=== PATIENT | female | born 1965 | race Caucasian/White ===

== ENCOUNTER 2021-04-01 14:59 | Inpatient (IN) | payer OTHER ==
[2021-04-01] MEDS ORDERED: Sodium Chloride 0.9% 1,000 ML IV ONE (15:29)
[2021-04-01] MEDS ORDERED: Sodium Chloride 0.9% 10 ML Syringe FLUSH PRN (15:29)
--- NOTE | 2021-04-01 15:38 | EDM.PDOC ---
ED HPI GENERAL MEDICAL PROBLEM - General Chief Complaint: Respiratory Problem Stated Complaint: LOW OXYGEN COVID + Time Seen by Provider: 04/01/21 15:18 Source of Information: Reports: Patient, RN Notes Reviewed History Limitations: Reports: No Limitations - History of Present Illness INITIAL COMMENTS - FREE TEXT/NARRATIVE: Patient is a 56-year-old female who presents to the ER for low oxygen levels while being Covid positive. Patient states she was tested on March 29, notes found to be Covid positive. She was placed on dexamethasone and sent home for outpatient management. She states that things have not been going very well not she feels pretty rotten today. She has a friend, who is an EMT and measured her oxygen levels at home and was found to be 85% on room air, so they sent her to the ER for evaluation. She is not had a fever, but has had chills, she is had a cough that is nonproductive, and shortness of breath, with really any movement. States she has not had much of an appetite, so she is not been eating or drinking much. Primary care provider is Adelaida Lind. Patient denies any underlying health issues other than the obesity. She did have an albuterol inha ler at home, and is trying to use this but states this was not helping either. - Related Data Allergies Allergy/AdvReac Type Severity Reaction Status Date / Time Opioids - Morphine Analogues Allergy Severe Chest Pain Verified 04/01/21 15:18 Home Meds: Home Meds Albuterol Sulfate [Albuterol Sulfate HFA] 1 puff IH Q6H PRN 04/01/21 [History] Benzonatate 200 mg PO TID PRN 04/01/21 [History] Ondansetron [Zofran ODT] 4 mg SL Q4H PRN 04/01/21 [History] dexAMETHasone [Dexamethasone] 6 mg PO DAILY 04/01/21 [History] Past Medical History - Infectious Disease History Infectious Disease History: Reports: Novel Coronavirus (03/29/21) - Past Surgical History GI Surgical History: Reports: Other (See Below) Other GI Surgeries/Procedures: stomach surgery Social & Family History - Tobacco Use Tobacco Use Status *Q: Never Tobacco User Second Hand Smoke Exposure: No - Caffeine Use Caffeine Use: Reports: None - Recreational Drug Use Recreational Drug Use: No ED ROS GENERAL - Review of Systems Review Of Systems: Comprehensive ROS is negative, except as noted in HPI. ED EXAM, GENERAL - Physical Exam Exam: See Below Exam Limited By: No Limitations General Appearance: Alert, WD/WN, No Apparent Distress Respiratory/Chest: No Respiratory Distress, Lungs Clear, Normal Breath Sounds, No Accessory Muscle Use, Chest Non-Tender Cardiovascular: Normal Peripheral Pulses, Regular Rate, Rhythm, No Edema Peripheral Pulses: 2+: Radial (L), Radial (R) GI/Abdominal: Normal Bowel Sounds, Soft, Non-Tender, No Distention, No Mass Extremities: Normal Inspection, Normal Capillary Refill Neurological: Alert, Oriented, Normal Cognition, No Motor/Sensory Deficits Psychiatric: Normal Affect, Normal Mood Skin Exam: Warm, Dry, Intact, Normal Color, No Rash #1 Interpretation EKG Date: 04/01/21 Time: 15:44 Rhythm: NSR Rate (Beats/Min): 76 [place]: LAD-Left [place] Deviation P-Wave: Present QRS: Normal ST-T: Normal QT: Normal Comparison: NA - No Prior EKG EKG Interpretation Comments: No obvious ischemia or acute ST changes noted, reviewed by myself and Dr. Blum. Course - Vital Signs Last Recorded V/S: Last Vital Signs Temp 99.4 F 04/01/21 15:13 Pulse 76 04/01/21 15:13 Resp 24 H 04/01/21 15:13 BP 134/60 04/01/21 15:13 Pulse Ox 85 L 04/01/21 15:26 - Orders/Labs/Meds Orders: Active Orders 24 hr Category Date Time Status Admission Status [Patient Status] [ADT] Routine ADT 04/01/21 17:13 Ordered EKG Documentation Completion [RC] STAT Care 04/01/21 15:28 Ordered Oxygen Therapy, ED [RC] ASDIRECTED Care 04/01/21 16:03 Ordered Peripheral IV Care [RC] . DIRECTED Care 04/01/21 15:29 Ordered Chest 1V Frontal [CR] Stat Exams 04/01/21 15:28 Ordered CULTURE BLOOD [BC] Stat Lab 04/01/21 15:28 Ordered CULTURE BLOOD [BC] Stat Lab 04/01/21 15:28 Ordered Sodium Chloride 0.9% [Normal Saline] 1,000 ml Med 04/01/21 15:29 Active IV ONETIME Sodium Chloride 0.9% [Saline Flush] Med 04/01/21 15:29 Active 10 ml FLUSH ASDIRECTED PRN Blood Culture x2 Reflex Set [OM.PC] Stat Oth 04/01/21 15:28 Ordered Peripheral IV Insertion Adult [OM.PC] Routine Ot 04/01/21 15:28 Ordered Medication Orders Sodium Chloride (Normal Saline) 1,000 mls @ 250 mls/hr IV ONETIME ONE Stop: 04/01/21 19:28 Last Admin: 04/01/21 16:07 Dose: 250 mls/hr Documented by: ALEJANDRA Sodium Chloride (Sodium Chloride 0.9% 10 Ml Syringe) 10 ml FLUSH ASDIRECTED PRN PRN Reason: Keep Vein Open Last Admin: 04/01/21 16:07 Dose: 10 ml Documented by: ALEJANDRA Labs: Laboratory Tests 04/01/21 04/01/21 04/01/21 Range/Units 15:28 16:04 16:04 WBC 8.53 (3.98-10.04) K/mm3 RBC 4.16 (3.98-5.22) M/mm3 Hgb 12.9 (11.2-15.7) gm/dl Hct 39.9 (34.1-44.9) % MCV 95.9 H (79.4-94.8) fl MCH 31.0 (25.6-32.2) pg MCHC 32.3 (32.2-35.5) g/dl RDW Std Deviation 45.1 (36.4-46.3) fL Plt Count 193 (182-369) K/mm3 MPV 10.9 (9.4-12.3) fl Neutrophils % (Manual) 76 H (40-60) % Band Neutrophils % 0 (0-10) % Lymphocytes % (Manual) 14 L (20-40) % Atypical Lymphs % 4 % Monocytes % (Manual) 4 (2-10) % Eosinophils % (Manual) 0 L (0.7-5.8) % Basophils % (Manual) 0 L (0.1-1.2) Myelocytes % 2 Platelet Estimate Adequate RBC Morph Comment Normal PT (9.7-12.0) SECONDS INR APTT (21.7-31.4) SECONDS D-Dimer, Quantitative (0.19-0.50) mg/L Puncture Site Lt radial ABG pH 7.49 H (7.35-7.45) ABG pCO2 39.4 (35.0-45.0) mmHg ABG pO2 51.0 L (80.0-100.0) mmHg ABG HCO3 29.5 H (22.0-26.0) meq/L ABG O2 Saturation 83.2 L (96.0-97.0) % ABG Base Excess 6.1 H (-2-2.0) Yao Test Positive O2 Delivery Device Room air Oxygen Flow Rate 0.0 FiO2 0.00 L (21.00-100.00) % Sodium (136-145) mEq/L Potassium (3.5-5.1) mEq/L Chloride (98-107) mEq/L Carbon Dioxide (21-32) mEq/L Anion Gap (5-15) BUN (7-18) mg/dL Creatinine (0.55-1.02) mg/dL Est Cr Clr Drug Dosing mL/min Estimated GFR (MDRD) (>60) mL/min BUN/Creatinine Ratio (14-18) Glucose (70-99) mg/dL Lactic Acid (0.4-2.0) mmol/L Calcium (8.5-10.1) mg/dL Magnesium (1.8-2.4) mg/dL Ferritin (8-252) ng/ml Total Bilirubin (0.2-1.0) mg/dL AST (15-37) U/L ALT (14-59) U/L Alkaline Phosphatase (46-116) U/L Lactate Dehydrogenase (81-234) U/L Troponin I (0.00-0.056) ng/mL C-Reactive Protein 4.6 H* (<1.0) mg/dL NT-Pro-B Natriuret Pep (0-125) pg/mL Total Protein (6.4-8.2) g/dl Albumin (3.4-5.0) g/dl Globulin gm/dL Albumin/Globulin Ratio (1-2) 04/01/21 04/01/21 04/01/21 Range/Units 16:04 16:04 16:04 WBC (3.98-10.04) K/mm3 RBC (3.98-5.22) M/mm3 Hgb (11.2-15.7) gm/dl Hct (34.1-44.9) % MCV (79.4-94.8) fl MCH (25.6-32.2) pg MCHC (32.2-35.5) g/dl RDW Std Deviation (36.4-46.3) fL Plt Count (182-369) K/mm3 MPV (9.4-12.3) fl Neutrophils % (Manual) (40-60) % Band Neutrophils % (0-10) % Lymphocytes % (Manual) (20-40) % Atypical Lymphs % % Monocytes % (Manual) (2-10) % Eosinophils % (Manual) (0.7-5.8) % Basophils % (Manual) (0.1-1.2) Myelocytes % Platelet Estimate RBC Morph Comment PT 10.5 (9.7-12.0) SECONDS INR 0.98 APTT 31.9 H (21.7-31.4) SECONDS D-Dimer, Quantitative 0.23 (0.19-0.50) mg/L Puncture Site ABG pH (7.35-7.45) ABG pCO2 (35.0-45.0) mmHg ABG pO2 (80.0-100.0) mmHg ABG HCO3 (22.0-26.0) meq/L ABG O2 Saturation (96.0-97.0) % ABG Base Excess (-2-2.0) Yao Test O2 Delivery Device Oxygen Flow Rate FiO2 (21.00-100.00) % Sodium 142 (136-145) mEq/L Potassium 3.3 L (3.5-5.1) mEq/L Chloride 102 (98-107) mEq/L Carbon Dioxide 30 (21-32) mEq/L Anion Gap 13.3 (5-15) BUN 15 (7-18) mg/dL Creatinine 1.0 (0.55-1.02) mg/dL Est Cr Clr Drug Dosing 51.34 mL/min Estimated GFR (MDRD) 57 (>60) mL/min BUN/Creatinine Ratio 15.0 (14-18) Glucose 155 H (70-99) mg/dL Lactic Acid (0.4-2.0) mmol/L Calcium 8.1 L (8.5-10.1) mg/dL Magnesium 2.2 (1.8-2.4) mg/dL Ferritin (8-252) ng/ml Total Bilirubin 0.8 (0.2-1.0) mg/dL AST 42 H (15-37) U/L ALT 70 H (14-59) U/L Alkaline Phosphatase 66 (46-116) U/L Lactate Dehydrogenase 258 H (81-234) U/L Troponin I 0.017 (0.00-0.056) ng/mL C-Reactive Protein (<1.0) mg/dL NT-Pro-B Natriuret Pep 756 H (0-125) pg/mL Total Protein 6.8 (6.4-8.2) g/dl Albumin 3.1 L (3.4-5.0) g/dl Globulin 3.7 gm/dL Albumin/Globulin Ratio 0.8 L (1-2) 04/01/21 04/01/21 Range/Units 16:04 16:04 WBC (3.98-10.04) K/mm3 RBC (3.98-5.22) M/mm3 Hgb (11.2-15.7) gm/dl Hct (34.1-44.9) % MCV (79.4-94.8) fl MCH (25.6-32.2) pg MCHC (32.2-35.5) g/dl RDW Std Deviation (36.4-46.3) fL Plt Count (182-369) K/mm3 MPV (9.4-12.3) fl Neutrophils % (Manual) (40-60) % Band Neutrophils % (0-10) % Lymphocytes % (Manual) (20-40) % Atypical Lymphs % % Monocytes % (Manual) (2-10) % Eosinophils % (Manual) (0.7-5.8) % Basophils % (Manual) (0.1-1.2) Myelocytes % Platelet Estimate RBC Morph Comment PT (9.7-12.0) SECONDS INR APTT (21.7-31.4) SECONDS D-Dimer, Quantitative (0.19-0.50) mg/L Puncture Site ABG pH (7.35-7.45) ABG pCO2 (35.0-45.0) mmHg ABG pO2 (80.0-100.0) mmHg ABG HCO3 (22.0-26.0) meq/L ABG O2 Saturation (96.0-97.0) % ABG Base Excess (-2-2.0) Yao Test O2 Delivery Device Oxygen Flow Rate FiO2 (21.00-100.00) % Sodium (136-145) mEq/L Potassium (3.5-5.1) mEq/L Chloride (98-107) mEq/L Carbon Dioxide (21-32) mEq/L Anion Gap (5-15) BUN (7-18) mg/dL Creatinine (0.55-1.02) mg/dL Est Cr Clr Drug Dosing mL/min Estimated GFR (MDRD) (>60) mL/min BUN/Creatinine Ratio (14-18) Glucose (70-99) mg/dL Lactic Acid 1.4 (0.4-2.0) mmol/L Calcium (8.5-10.1) mg/dL Magnesium (1.8-2.4) mg/dL Ferritin 408 H (8-252) ng/ml Total Bilirubin (0.2-1.0) mg/dL AST (15-37) U/L ALT (14-59) U/L Alkaline Phosphatase (46-116) U/L Lactate Dehydrogenase (81-234) U/L Troponin I (0.00-0.056) ng/mL C-Reactive Protein (<1.0) mg/dL NT-Pro-B Natriuret Pep (0-125) pg/mL Total Protein (6.4-8.2) g/dl Albumin (3.4-5.0) g/dl Globulin gm/dL Albumin/Globulin Ratio (1-2) Meds: Medications Generic Name Dose Route Start Last Admin Trade Name Freq PRN Reason Stop Dose Admin Sodium Chloride 1,000 mls @ 250 mls/hr 04/01/21 15:29 04/01/21 16:07 Normal Saline IV 04/01/21 19:28 250 mls/hr ONETIME ONE Administration Sodium Chloride 10 ml 04/01/21 15:29 04/01/21 16:07 Sodium Chloride 0.9% 10 Ml Syringe FLUSH 10 ml ASDIRECTED PRN Administration Keep Vein Open - Re-Assessments/Exams Free Text/Narrative Re-Assessment/Exam: 04/01/21 15:38 Patient presents to the ER for low oxygen levels and being Covid positive. Have ordered quite a few labs for evaluation, chest x-ray and EKG. Patient was found to be hypoxic at triage, 85% on room air we will get room air blood gases. Plan is to hopefully admit the patient for hospitalization. 04/01/21 17:29 Labs have started to result, CBC is unremarkable, D-dimer is within normal limits, patient blood gas demonstrated a PO2 of 51, with no CO2 retention. The patient has been started on 2 L via nasal cannula, and is in the low 90s for O2 sats, she will be hospitalized, I did call Dr. Perez and he did graciously accept the patient for admission. He request that only 500 mils of fluid be given to the patient, so I did tell nursing to stop her IV. Departure - Departure Time of Disposition: 17:30 Disposition: Admitted As Inpatient 65 Condition: Good Clinical Impression: Hypoxia, COVID-19 - Discharge Information *PRESCRIPTION DRUG MONITORING PROGRAM REVIEWED*: No *COPY OF PRESCRIPTION DRUG MONITORING REPORT IN PATIENT LAQUITA: No Referrals: Adelaida Lind [facility] MANAGER [Primary Care Provider] - Forms: ED Department Discharge Sepsis Event Note (ED) - Evaluation Sepsis Screening Result: No Definite Risk - Focused Exam Vital Signs: Vital Signs Temp Pulse Resp BP Pulse Ox Pulse Ox 04/01/21 15:26 85 L 04/01/21 15:13 99.4 F 76 24 H 134/60 85 L - My Orders Last 24 Hours: My Active Orders 04/01/21 15:28 EKG Documentation Completion [RC] STAT Chest 1V Frontal [CR] Stat CULTURE BLOOD [BC] Stat CULTURE BLOOD [BC] Stat Blood Culture x2 Reflex Set [OM.PC] Stat Peripheral IV Insertion Adult [OM.PC] Routine 04/01/21 15:29 Peripheral IV Care [RC] . DIRECTED Sodium Chloride 0.9% [Normal Saline] 1,000 ml IV ONETIME Sodium Chloride 0.9% [Saline Flush] 10 ml FLUSH ASDIRECTED PRN 04/01/21 16:03 Oxygen Therapy, ED [RC] ASDIRECTED 04/01/21 17:13 Admission Status [Patient Status] [ADT] Routine - Assessment/Plan Last 24 Hours: My Active Orders 04/01/21 15:28 EKG Documentation Completion [RC] STAT Chest 1V Frontal [CR] Stat CULTURE BLOOD [BC] Stat CULTURE BLOOD [BC] Stat Blood Culture x2 Reflex Set [OM.PC] Stat Peripheral IV Insertion Adult [OM.PC] Routine 04/01/21 15:29 Peripheral IV Care [RC] . DIRECTED Sodium Chloride 0.9% [Normal Saline] 1,000 ml IV ONETIME Sodium Chloride 0.9% [Saline Flush] 10 ml FLUSH ASDIRECTED PRN 04/01/21 16:03 Oxygen Therapy, ED [RC] ASDIRECTED 04/01/21 17:13 Admission Status [Patient Status] [ADT] Routine
[2021-04-01] MEDS ORDERED: Ondansetron 4 MG Tab.DIS PO PRN (17:36)
[2021-04-01] MEDS ORDERED: Acetaminophen 325 MG Tab PO PRN (17:36)
[2021-04-01] MEDS ORDERED: oxyCODONE 5 MG Tab PO PRN (17:36)
[2021-04-01] MEDS ORDERED: Benzonatate 100 MG Cap PO PRN (17:48)
[2021-04-01] MEDS ORDERED: guaiFENesin/Dextromethorphan 100-10 MG/5 ML Soln 5 ML Cup PO PRN (17:49)
--- NOTE | 2021-04-01 17:56 | PCM.HP.2 ---
H&P History of Present Illness - General Date of Service: 04/02/21 Admit Problem/Dx: Admission Diagnosis/Problem Admission Diagnosis/Problem Hypoxia - History of Present Illness Initial Comments - Free Text/Narative: Mrs. Funes is a 56-year-old female who presented to ER with complaints of dyspnea, hypoxemia and cough. She tested positive for COVID-19 on March 29 and was prescribed dexamethasone, albuterol and Tessalon Perles. She has been compliant with treatment however her symptoms have persisted. She now feels like she is getting worse. She checked her O2 sats at home and her reading was at 85% on room air. She then decided come to the ER for further evaluation. She denies any fever, chills or malaise. Her appetite has been less than her normal. - Related Data Allergies/Adverse Reactions: Allergies Allergy/AdvReac Type Severity Reaction Status Date / Time Opioids - Morphine Analogues Allergy Severe Chest Pain Verified 04/01/21 15:18 Home Medications: Home Meds Albuterol Sulfate [Albuterol Sulfate HFA] 1 puff IH Q6H PRN 04/01/21 [History] Benzonatate 200 mg PO TID PRN 04/01/21 [History] Ondansetron [Zofran ODT] 4 mg SL Q4H PRN 04/01/21 [History] dexAMETHasone [Dexamethasone] 6 mg PO DAILY 04/01/21 [History] Past Medical History Endocrine/Metabolic History: Reports: Obesity/BMI 30+ (MORBID OBESITY) - Infectious Disease History Infectious Disease History: Reports: Novel Coronavirus (03/29/21) - Past Surgical History GI Surgical History: Reports: Other (See Below) Other GI Surgeries/Procedures: stomach surgery Social & Family History - Tobacco Use Tobacco Use Status *Q: Never Tobacco User Second Hand Smoke Exposure: No - Caffeine Use Caffeine Use: Reports: None - Recreational Drug Use Recreational Drug Use: No H&P Review of Systems - Review of Systems: Review Of Systems: See Below Free Text/Narrative: Constitutional: As per HPI CVS: Patient has any chest pain, orthopnea or PND Lungs: As per HPI Abdomen: As per HPI Genitourinary: Denies any dysuria, frequency,urgency or hematuria Psych: Denies having any suicidal or homicidal ideations. Patient also denies any hallucinations Endocrine: Denies any heat or cold intolerance. Denies any recent weight changes. Exam - Exam Exam: See Below - Vital Signs Vital Signs: Last Vital Signs Temp 99.4 F 04/01/21 15:13 Pulse 76 04/01/21 15:13 Resp 24 H 04/01/21 15:13 BP 134/60 04/01/21 15:13 Pulse Ox 85 L 04/01/21 15:26 Weight: 285 lb - Exam Physical Exam Comments:: This is an obese middle-aged female. She is awake and alert. Able to speak in full sentences HEENT: Normocephalic atraumatic pupils equal round react to light and accommodation extraocular is intact CVS: S1 S2 appreciated. regular rate and rhythm. no murmurs rubs or gallops lungs: Greatly diminished bilaterally with some wheezes bilaterally Abdomen: Obese , soft nontender, bowel sounds present Extremities: No clubbing, cyanosis or edema peripheral pulses 2+ Neuro: no focal deficits. Gait is normal. Sensation is normal Psych: Mood and affect are stable - Patient Data Lab Results Last 24 hrs: Laboratory Results - last 24 hr 04/01/21 04/01/21 04/01/21 Range/Units 15:28 16:04 16:04 WBC 8.53 (3.98-10.04) K/mm3 RBC 4.16 (3.98-5.22) M/mm3 Hgb 12.9 (11.2-15.7) gm/dl Hct 39.9 (34.1-44.9) % MCV 95.9 H (79.4-94.8) fl MCH 31.0 (25.6-32.2) pg MCHC 32.3 (32.2-35.5) g/dl RDW Std Deviation 45.1 (36.4-46.3) fL Plt Count 193 (182-369) K/mm3 MPV 10.9 (9.4-12.3) fl Neutrophils % (Manual) 76 H (40-60) % Band Neutrophils % 0 (0-10) % Lymphocytes % (Manual) 14 L (20-40) % Atypical Lymphs % 4 % Monocytes % (Manual) 4 (2-10) % Eosinophils % (Manual) 0 L (0.7-5.8) % Basophils % (Manual) 0 L (0.1-1.2) Myelocytes % 2 Platelet Estimate Adequate RBC Morph Comment Normal PT (9.7-12.0) SECONDS INR APTT (21.7-31.4) SECONDS D-Dimer, Quantitative (0.19-0.50) mg/L Puncture Site Lt radial ABG pH 7.49 H (7.35-7.45) ABG pCO2 39.4 (35.0-45.0) mmHg ABG pO2 51.0 L (80.0-100.0) mmHg ABG HCO3 29.5 H (22.0-26.0) meq/L ABG O2 Saturation 83.2 L (96.0-97.0) % ABG Base Excess 6.1 H (-2-2.0) Yao Test Positive O2 Delivery Device Room air Oxygen Flow Rate 0.0 FiO2 0.00 L (21.00-100.00) % Sodium (136-145) mEq/L Potassium (3.5-5.1) mEq/L Chloride (98-107) mEq/L Carbon Dioxide (21-32) mEq/L Anion Gap (5-15) BUN (7-18) mg/dL Creatinine (0.55-1.02) mg/dL Est Cr Clr Drug Dosing mL/min Estimated GFR (MDRD) (>60) mL/min BUN/Creatinine Ratio (14-18) Glucose (70-99) mg/dL Lactic Acid (0.4-2.0) mmol/L Calcium (8.5-10.1) mg/dL Magnesium (1.8-2.4) mg/dL Ferritin (8-252) ng/ml Total Bilirubin (0.2-1.0) mg/dL AST (15-37) U/L ALT (14-59) U/L Alkaline Phosphatase (46-116) U/L Lactate Dehydrogenase (81-234) U/L Troponin I (0.00-0.056) ng/mL C-Reactive Protein 4.6 H* (<1.0) mg/dL NT-Pro-B Natriuret Pep (0-125) pg/mL Total Protein (6.4-8.2) g/dl Albumin (3.4-5.0) g/dl Globulin gm/dL Albumin/Globulin Ratio (1-2) 04/01/21 04/01/21 04/01/21 Range/Units 16:04 16:04 16:04 WBC (3.98-10.04) K/mm3 RBC (3.98-5.22) M/mm3 Hgb (11.2-15.7) gm/dl Hct (34.1-44.9) % MCV (79.4-94.8) fl MCH (25.6-32.2) pg MCHC (32.2-35.5) g/dl RDW Std Deviation (36.4-46.3) fL Plt Count (182-369) K/mm3 MPV (9.4-12.3) fl Neutrophils % (Manual) (40-60) % Band Neutrophils % (0-10) % Lymphocytes % (Manual) (20-40) % Atypical Lymphs % % Monocytes % (Manual) (2-10) % Eosinophils % (Manual) (0.7-5.8) % Basophils % (Manual) (0.1-1.2) Myelocytes % Platelet Estimate RBC Morph Comment PT 10.5 (9.7-12.0) SECONDS INR 0.98 APTT 31.9 H (21.7-31.4) SECONDS D-Dimer, Quantitative 0.23 (0.19-0.50) mg/L Puncture Site ABG pH (7.35-7.45) ABG pCO2 (35.0-45.0) mmHg ABG pO2 (80.0-100.0) mmHg ABG HCO3 (22.0-26.0) meq/L ABG O2 Saturation (96.0-97.0) % ABG Base Excess (-2-2.0) Yao Test O2 Delivery Device Oxygen Flow Rate FiO2 (21.00-100.00) % Sodium 142 (136-145) mEq/L Potassium 3.3 L (3.5-5.1) mEq/L Chloride 102 (98-107) mEq/L Carbon Dioxide 30 (21-32) mEq/L Anion Gap 13.3 (5-15) BUN 15 (7-18) mg/dL Creatinine 1.0 (0.55-1.02) mg/dL Est Cr Clr Drug Dosing 51.34 mL/min Estimated GFR (MDRD) 57 (>60) mL/min BUN/Creatinine Ratio 15.0 (14-18) Glucose 155 H (70-99) mg/dL Lactic Acid (0.4-2.0) mmol/L Calcium 8.1 L (8.5-10.1) mg/dL Magnesium 2.2 (1.8-2.4) mg/dL Ferritin (8-252) ng/ml Total Bilirubin 0.8 (0.2-1.0) mg/dL AST 42 H (15-37) U/L ALT 70 H (14-59) U/L Alkaline Phosphatase 66 (46-116) U/L Lactate Dehydrogenase 258 H (81-234) U/L Troponin I 0.017 (0.00-0.056) ng/mL C-Reactive Protein (<1.0) mg/dL NT-Pro-B Natriuret Pep 756 H (0-125) pg/mL Total Protein 6.8 (6.4-8.2) g/dl Albumin 3.1 L (3.4-5.0) g/dl Globulin 3.7 gm/dL Albumin/Globulin Ratio 0.8 L (1-2) 04/01/21 04/01/21 Range/Units 16:04 16:04 WBC (3.98-10.04) K/mm3 RBC (3.98-5.22) M/mm3 Hgb (11.2-15.7) gm/dl Hct (34.1-44.9) % MCV (79.4-94.8) fl MCH (25.6-32.2) pg MCHC (32.2-35.5) g/dl RDW Std Deviation (36.4-46.3) fL Plt Count (182-369) K/mm3 MPV (9.4-12.3) fl Neutrophils % (Manual) (40-60) % Band Neutrophils % (0-10) % Lymphocytes % (Manual) (20-40) % Atypical Lymphs % % Monocytes % (Manual) (2-10) % Eosinophils % (Manual) (0.7-5.8) % Basophils % (Manual) (0.1-1.2) Myelocytes % Platelet Estimate RBC Morph Comment PT (9.7-12.0) SECONDS INR APTT (21.7-31.4) SECONDS D-Dimer, Quantitative (0.19-0.50) mg/L Puncture Site ABG pH (7.35-7.45) ABG pCO2 (35.0-45.0) mmHg ABG pO2 (80.0-100.0) mmHg ABG HCO3 (22.0-26.0) meq/L ABG O2 Saturation (96.0-97.0) % ABG Base Excess (-2-2.0) Yao Test O2 Delivery Device Oxygen Flow Rate FiO2 (21.00-100.00) % Sodium (136-145) mEq/L Potassium (3.5-5.1) mEq/L Chloride (98-107) mEq/L Carbon Dioxide (21-32) mEq/L Anion Gap (5-15) BUN (7-18) mg/dL Creatinine (0.55-1.02) mg/dL Est Cr Clr Drug Dosing mL/min Estimated GFR (MDRD) (>60) mL/min BUN/Creatinine Ratio (14-18) Glucose (70-99) mg/dL Lactic Acid 1.4 (0.4-2.0) mmol/L Calcium (8.5-10.1) mg/dL Magnesium (1.8-2.4) mg/dL Ferritin 408 H (8-252) ng/ml Total Bilirubin (0.2-1.0) mg/dL AST (15-37) U/L ALT (14-59) U/L Alkaline Phosphatase (46-116) U/L Lactate Dehydrogenase (81-234) U/L Troponin I (0.00-0.056) ng/mL C-Reactive Protein (<1.0) mg/dL NT-Pro-B Natriuret Pep (0-125) pg/mL Total Protein (6.4-8.2) g/dl Albumin (3.4-5.0) g/dl Globulin gm/dL Albumin/Globulin Ratio (1-2) Result Diagrams: 04/02/21 05:06 04/02/21 05:06 Sepsis Event Note - Evaluation Sepsis Screening Result: No Definite Risk - Focused Exam Vital Signs: Vital Signs Temp Pulse Resp BP Pulse Ox Pulse Ox 04/01/21 15:26 85 L 04/01/21 15:13 99.4 F 76 24 H 134/60 85 L - Problem List (1) Acute respiratory failure due to COVID-19 SNOMED Code(s): 629827988 ICD Code: U07.1 - COVID-19; J96.00 - ACUTE RESPIRATORY FAILURE, UNSP W HYPOX IA OR HYPERCAPNIA Status: Acute Current Visit: Yes Problem Details: Admit pt to the medical floor. Oxygen supplementation Inhalors prn incentive spirometry Q hr while awake proning Q HD (2) COVID-19 SNOMED Code(s): 373113284 ICD Code: U07.1 - COVID-19 Status: Acute Current Visit: Yes Problem Details: Start pt on remdesivir x 5 days Zithromax and Rocephin continue Decadron for a total of 10 days anticoagulation with SQ lovenox. check a D dimer. (3) Hypoxia SNOMED Code(s): 704546317 ICD Code: R09.02 - HYPOXEMIA Status: Acute Current Visit: Yes (4) Morbid obesity due to excess calories SNOMED Code(s): 569373029 ICD Code: E66.01 - MORBID (SEVERE) OBESITY DUE TO EXCESS CALORIES Status: Acute Current Visit: Yes Problem Details: lifestyle modification counseling. (5) DVT prophylaxis SNOMED Code(s): 292059983, 638818487 ICD Code: Z29.9 - ENCOUNTER FOR PROPHYLACTIC MEASURES, UNSPECIFIED Status: Acute Current Visit: Yes (6) Full code status SNOMED Code(s): 658561830 ICD Code: Z78.9 - OTHER SPECIFIED HEALTH STATUS Status: Acute Current Visit: Yes (7) DVT prophylaxis SNOMED Code(s): 512128278, 670625717 ICD Code: Z29.9 - ENCOUNTER FOR PROPHYLACTIC MEASURES, UNSPECIFIED Status: Acute Current Visit: Yes Problem Details: lovenox SQ Problem List Initiated/Reviewed/Updated: Yes Orders Last 24hrs: Active Orders 24 hr Category Date Time Status Admission Status [Patient Status] [ADT] Routine ADT 04/01/21 17:13 Active Communication Order [RC] DAILY Care 04/01/21 17:50 Ordered EKG Documentation Completion [RC] STAT Care 04/01/21 15:28 Active Oxygen Therapy [RC] PRN Care 04/01/21 17:36 Ordered Peripheral IV Care [RC] . DIRECTED Care 04/01/21 15:29 Active RT Incentive Spirometry [RC] Q1HWA Care 04/01/21 17:48 Ordered VTE/DVT Education [RC] PER UNIT ROUTINE Care 04/01/21 17:36 Ordered Vital Signs [RC] Q4H Care 04/01/21 17:36 Ordered Regular Diet [DIET] Diet 04/01/21 Dinner Ordered Chest 1V Frontal [CR] Stat Exams 04/01/21 15:28 Taken BASIC METABOLIC PANEL,BMP [CHEM] AM Lab 04/02/21 05:11 Ordered CBC WITH AUTO DIFF [HEME] AM Lab 04/02/21 05:11 Ordered CULTURE BLOOD [BC] Stat Lab 04/01/21 16:04 Received CULTURE BLOOD [BC] Stat Lab 04/01/21 16:17 Received D Dimer [D-DIMER QUANTITATIVE] [COAG] Routine Lab 04/01/21 17:53 Ordered HEPATIC FUNCTION PANEL,HFP [CHEM] DAILY Lab 04/02/21 17:45 Ordered HEPATIC FUNCTION PANEL,HFP [CHEM] DAILY Lab 04/03/21 17:45 Ordered HEPATIC FUNCTION PANEL,[facility] [CHEM] DAILY Lab 04/04/21 17:45 Ordered HEPATIC FUNCTION PANEL,HFP [CHEM] DAILY Lab 04/05/21 17:45 Ordered HEPATIC FUNCTION PANEL,[facility] [CHEM] Stat Lab 04/01/21 17:42 Ordered Acetaminophen [TylenoL] Med 04/01/21 17:36 Ordered 650 mg PO Q4H PRN Azithromycin [Zithromax] Med 04/01/21 18:00 Ordered 500 mg PO DAILY Benzonatate [Tessalon Perles] Med 04/01/21 17:48 Ordered 100 mg PO TID PRN Dextromethorphan/guaiFENesin [Robitussin DM] Med 04/01/21 17:49 Ordered 5 ml PO Q4H PRN Enoxaparin [Lovenox] Med 04/01/21 18:00 Ordered 40 mg SUBCUT Q12H Ondansetron [Zofran ODT] Med 04/01/21 17:36 Ordered 4 mg PO Q4H PRN Remdesivir 100 mg Med 04/02/21 18:00 Ordered Sodium Chloride 0.9% [Normal Saline] 250 ml IV ONETIME Sodium Chloride 0.9% [Normal Saline] 1,000 ml Med 04/01/21 15:29 Active IV ONETIME Sodium Chloride 0.9% [Saline Flush] Med 04/01/21 15:29 Active 10 ml FLUSH ASDIRECTED PRN dexAMETHasone Med 04/01/21 17:45 Ordered 6 mg PO DAILY oxyCODONE Med 04/01/21 17:36 Ordered 5 mg PO Q4H PRN Blood Culture x2 Reflex Set [OM.PC] Stat Oth 04/01/21 15:28 Ordered Peripheral IV Insertion Adult [OM.PC] Routine Oth 04/01/21 15:28 Ordered Resuscitation Status Routine Resus Stat 04/01/21 17:36 Ordered Medication Orders Acetaminophen (Acetaminophen 325 Mg Tab) 650 mg PO Q4H PRN PRN Reason: Pain (Mild 1-3)/fever Sodium Chloride (Normal Saline) 1,000 mls @ 250 mls/hr IV ONETIME ONE Stop: 04/01/21 19:28 Last Admin: 04/01/21 16:07 Dose: 250 mls/hr Documented by: ALEJANDRA Ondansetron HCl (Ondansetron 4 Mg Tab.Dis) 4 mg PO Q4H PRN PRN Reason: nausea, able to take PO Oxycodone HCl (Oxycodone 5 Mg Tab) 5 mg PO Q4H PRN PRN Reason: Pain (moderate 4-6) Sodium Chloride (Sodium Chloride 0.9% 10 Ml Syringe) 10 ml FLUSH ASDIRECTED PRN PRN Reason: Keep Vein Open Last Admin: 04/01/21 16:07 Dose: 10 ml Documented by: ALEJANDRA
[2021-04-01] MEDS ORDERED: Azithromycin 250 MG Tab PO SCH (18:00)
[2021-04-01] MEDS ORDERED: Enoxaparin 40 MG/0.4 ML Syringe SUBCUT SCH (18:00)
[2021-04-01] MEDS: Dexamethasone 4 MG Tab PO SCH (19:04)
[2021-04-01] MEDS ORDERED: REMDESIVIR 200 MG in Sodium Chloride 0.9% 250 ML IV ONE (20:41)
[2021-04-01] MEDS: Albuterol 6.7 GM Inhaler INH PRN (21:21)
--- NOTE | 2021-04-02 06:38 | CR ---
Chest: Portable view of the chest was obtained. Comparison: No prior chest imaging is available. Heart size and mediastinum are within normal limits for portable technique. Mild increased density is noted along the periphery of both lungs compatible with mild Covid 19 pneumonia. Lungs otherwise are clear. Bony structures show nothing acute. Impression: 1. Findings are compatible with mild Covid 19 pneumonia. 2. Portable chest x-ray is otherwise unremarkable. Diagnostic code #3
[2021-04-02] MEDS: Dexamethasone 4 MG Tab PO SCH (08:44)
[2021-04-02] MEDS ORDERED: Enoxaparin 40 MG/0.4 ML Syringe SUBCUT SCH (09:00)
--- NOTE | 2021-04-02 11:46 | PCM.PN ---
- General Info Date of Service: 04/02/21 Subjective Update: Patient still has a cough but definitely feels a lot better than she did yesterday. She still requires use of oxygen to keep sats above 90%. - Patient Data Vitals - Most Recent: Last Vital Signs Temp 97.5 F 04/02/21 10:50 Pulse 60 04/02/21 10:50 Resp 20 04/02/21 10:50 BP 130/48 L 04/02/21 10:50 Pulse Ox 89 L 04/02/21 10:50 Weight - Most Recent: 292 lb 12.8 oz I&O - Last 24 Hours: Intake & Output 04/01/21 04/02/21 04/02/21 22:59 06:59 14:59 Intake Total 0 650 Output Total 850 Balance 0 -200 Lab Results Last 24 Hours: Laboratory Results - last 24 hr 04/01/21 04/01/21 04/01/21 Range/Units 15:28 16:04 16:04 WBC 8.53 (3.98-10.04) K/mm3 RBC 4.16 (3.98-5.22) M/mm3 Hgb 12.9 (11.2-15.7) gm/dl Hct 39.9 (34.1-44.9) % MCV 95.9 H (79.4-94.8) fl MCH 31.0 (25.6-32.2) pg MCHC 32.3 (32.2-35.5) g/dl RDW Std Deviation 45.1 (36.4-46.3) fL Plt Count 193 (182-369) K/mm3 MPV 10.9 (9.4-12.3) fl Neut % (Auto) (34.0-71.1) % Lymph % (Auto) (19.3-51.7) % Saunders % (Auto) (4.7-12.5) % Eos % (Auto) (0.7-5.8) Baso % (Auto) (0.1-1.2) % Neut # (Auto) (1.56-6.13) K/mm3 Lymph # (Auto) (1.18-3.74) K/mm3 Saunders # (Auto) (0.24-0.36) K/mm3 Eos # (Auto) (0.04-0.36) K/mm3 Baso # (Auto) (0.01-0.08) K/mm3 Neutrophils % (Manual) 76 H (40-60) % Band Neutrophils % 0 (0-10) % Lymphocytes % (Manual) 14 L (20-40) % Atypical Lymphs % 4 % Monocytes % (Manual) 4 (2-10) % Eosinophils % (Manual) 0 L (0.7-5.8) % Basophils % (Manual) 0 L (0.1-1.2) Myelocytes % 2 Manual Slide Review Platelet Estimate Adequate RBC Morph Comment Normal PT (9.7-12.0) SECONDS INR APTT (21.7-31.4) SECONDS D-Dimer, Quantitative (0.19-0.50) mg/L Puncture Site Lt radial ABG pH 7.49 H (7.35-7.45) ABG pCO2 39.4 (35.0-45.0) mmHg ABG pO2 51.0 L (80.0-100.0) mmHg ABG HCO3 29.5 H (22.0-26.0) meq/L ABG O2 Saturation 83.2 L (96.0-97.0) % ABG Base Excess 6.1 H (-2-2.0) Yao Test Positive O2 Delivery Device Room air Oxygen Flow Rate 0.0 FiO2 0.00 L (21.00-100.00) % Sodium (136-145) mEq/L Potassium (3.5-5.1) mEq/L Chloride (98-107) mEq/L Carbon Dioxide (21-32) mEq/L Anion Gap (5-15) BUN (7-18) mg/dL Creatinine (0.55-1.02) mg/dL Est Cr Clr Drug Dosing mL/min Estimated GFR (MDRD) (>60) mL/min BUN/Creatinine Ratio (14-18) Glucose (70-99) mg/dL Lactic Acid (0.4-2.0) mmol/L Calcium (8.5-10.1) mg/dL Magnesium (1.8-2.4) mg/dL Ferritin (8-252) ng/ml Total Bilirubin (0.2-1.0) mg/dL Direct Bilirubin (0.0-0.2) mg/dl Indirect Bilirubin AST (15-37) U/L ALT (14-59) U/L Alkaline Phosphatase (46-116) U/L Lactate Dehydrogenase (81-234) U/L Troponin I (0.00-0.056) ng/mL C-Reactive Protein 4.6 H* (<1.0) mg/dL NT-Pro-B Natriuret Pep (0-125) pg/mL Total Protein (6.4-8.2) g/dl Albumin (3.4-5.0) g/dl Globulin gm/dL Albumin/Globulin Ratio (1-2) 04/01/21 04/01/21 04/01/21 Range/Units 16:04 16:04 16:04 WBC (3.98-10.04) K/mm3 RBC (3.98-5.22) M/mm3 Hgb (11.2-15.7) gm/dl Hct (34.1-44.9) % MCV (79.4-94.8) fl MCH (25.6-32.2) pg MCHC (32.2-35.5) g/dl RDW Std Deviation (36.4-46.3) fL Plt Count (182-369) K/mm3 MPV (9.4-12.3) fl Neut % (Auto) (34.0-71.1) % Lymph % (Auto) (19.3-51.7) % Saunders % (Auto) (4.7-12.5) % Eos % (Auto) (0.7-5.8) Baso % (Auto) (0.1-1.2) % Neut # (Auto) (1.56-6.13) K/mm3 Lymph # (Auto) (1.18-3.74) K/mm3 Saunders # (Auto) (0.24-0.36) K/mm3 Eos # (Auto) (0.04-0.36) K/mm3 Baso # (Auto) (0.01-0.08) K/mm3 Neutrophils % (Manual) (40-60) % Band Neutrophils % (0-10) % Lymphocytes % (Manual) (20-40) % Atypical Lymphs % % Monocytes % (Manual) (2-10) % Eosinophils % (Manual) (0.7-5.8) % Basophils % (Manual) (0.1-1.2) Myelocytes % Manual Slide Review Platelet Estimate RBC Morph Comment PT 10.5 (9.7-12.0) SECONDS INR 0.98 APTT 31.9 H (21.7-31.4) SECONDS D-Dimer, Quantitative 0.23 (0.19-0.50) mg/L Puncture Site ABG pH (7.35-7.45) ABG pCO2 (35.0-45.0) mmHg ABG pO2 (80.0-100.0) mmHg ABG HCO3 (22.0-26.0) meq/L ABG O2 Saturation (96.0-97.0) % ABG Base Excess (-2-2.0) Yao Test O2 Delivery Device Oxygen Flow Rate FiO2 (21.00-100.00) % Sodium 142 (136-145) mEq/L Potassium 3.3 L (3.5-5.1) mEq/L Chloride 102 (98-107) mEq/L Carbon Dioxide 30 (21-32) mEq/L Anion Gap 13.3 (5-15) BUN 15 (7-18) mg/dL Creatinine 1.0 (0.55-1.02) mg/dL Est Cr Clr Drug Dosing 51.34 mL/min Estimated GFR (MDRD) 57 (>60) mL/min BUN/Creatinine Ratio 15.0 (14-18) Glucose 155 H (70-99) mg/dL Lactic Acid (0.4-2.0) mmol/L Calcium 8.1 L (8.5-10.1) mg/dL Magnesium 2.2 (1.8-2.4) mg/dL Ferritin (8-252) ng/ml Total Bilirubin 0.8 (0.2-1.0) mg/dL Direct Bilirubin (0.0-0.2) mg/dl Indirect Bilirubin AST 42 H (15-37) U/L ALT 70 H (14-59) U/L Alkaline Phosphatase 66 (46-116) U/L Lactate Dehydrogenase 258 H (81-234) U/L Troponin I 0.017 (0.00-0.056) ng/mL C-Reactive Protein (<1.0) mg/dL NT-Pro-B Natriuret Pep 756 H (0-125) pg/mL Total Protein 6.8 (6.4-8.2) g/dl Albumin 3.1 L (3.4-5.0) g/dl Globulin 3.7 gm/dL Albumin/Globulin Ratio 0.8 L (1-2) 04/01/21 04/01/21 04/01/21 Range/Units 16:04 16:04 18:20 WBC (3.98-10.04) K/mm3 RBC (3.98-5.22) M/mm3 Hgb (11.2-15.7) gm/dl Hct (34.1-44.9) % MCV (79.4-94.8) fl MCH (25.6-32.2) pg MCHC (32.2-35.5) g/dl RDW Std Deviation (36.4-46.3) fL Plt Count (182-369) K/mm3 MPV (9.4-12.3) fl Neut % (Auto) (34.0-71.1) % Lymph % (Auto) (19.3-51.7) % Saunders % (Auto) (4.7-12.5) % Eos % (Auto) (0.7-5.8) Baso % (Auto) (0.1-1.2) % Neut # (Auto) (1.56-6.13) K/mm3 Lymph # (Auto) (1.18-3.74) K/mm3 Saunders # (Auto) (0.24-0.36) K/mm3 Eos # (Auto) (0.04-0.36) K/mm3 Baso # (Auto) (0.01-0.08) K/mm3 Neutrophils % (Manual) (40-60) % Band Neutrophils % (0-10) % Lymphocytes % (Manual) (20-40) % Atypical Lymphs % % Monocytes % (Manual) (2-10) % Eosinophils % (Manual) (0.7-5.8) % Basophils % (Manual) (0.1-1.2) Myelocytes % Manual Slide Review Platelet Estimate RBC Morph Comment PT (9.7-12.0) SECONDS INR APTT (21.7-31.4) SECONDS D-Dimer, Quantitative (0.19-0.50) mg/L Puncture Site ABG pH (7.35-7.45) ABG pCO2 (35.0-45.0) mmHg ABG pO2 (80.0-100.0) mmHg ABG HCO3 (22.0-26.0) meq/L ABG O2 Saturation (96.0-97.0) % ABG Base Excess (-2-2.0) Yao Test O2 Delivery Device Oxygen Flow Rate FiO2 (21.00-100.00) % Sodium (136-145) mEq/L Potassium (3.5-5.1) mEq/L Chloride (98-107) mEq/L Carbon Dioxide (21-32) mEq/L Anion Gap (5-15) BUN (7-18) mg/dL Creatinine (0.55-1.02) mg/dL Est Cr Clr Drug Dosing mL/min Estimated GFR (MDRD) (>60) mL/min BUN/Creatinine Ratio (14-18) Glucose (70-99) mg/dL Lactic Acid 1.4 (0.4-2.0) mmol/L Calcium (8.5-10.1) mg/dL Magnesium (1.8-2.4) mg/dL Ferritin 408 H (8-252) ng/ml Total Bilirubin 0.8 (0.2-1.0) mg/dL Direct Bilirubin 0.30 H (0.0-0.2) mg/dl Indirect Bilirubin 0.50 AST 42 H (15-37) U/L ALT 69 H (14-59) U/L Alkaline Phosphatase 69 (46-116) U/L Lactate Dehydrogenase (81-234) U/L Troponin I (0.00-0.056) ng/mL C-Reactive Protein (<1.0) mg/dL NT-Pro-B Natriuret Pep (0-125) pg/mL Total Protein 6.7 (6.4-8.2) g/dl Albumin 3.0 L (3.4-5.0) g/dl Globulin 3.7 gm/dL Albumin/Globulin Ratio 0.8 L (1-2) 04/01/21 04/02/21 04/02/21 Range/Units 18:20 05:06 05:06 WBC 6.51 (3.98-10.04) K/mm3 RBC 4.03 (3.98-5.22) M/mm3 Hgb 12.5 (11.2-15.7) gm/dl Hct 38.3 (34.1-44.9) % MCV 95.0 H (79.4-94.8) fl MCH 31.0 (25.6-32.2) pg MCHC 32.6 (32.2-35.5) g/dl RDW Std Deviation 44.2 (36.4-46.3) fL Plt Count 171 L (182-369) K/mm3 MPV 10.4 (9.4-12.3) fl Neut % (Auto) 77.8 H (34.0-71.1) % Lymph % (Auto) 14.9 L (19.3-51.7) % Saunders % (Auto) 4.3 L (4.7-12.5) % Eos % (Auto) 2.8 (0.7-5.8) Baso % (Auto) 0.0 L (0.1-1.2) % Neut # (Auto) 5.07 (1.56-6.13) K/mm3 Lymph # (Auto) 0.97 L (1.18-3.74) K/mm3 Saunders # (Auto) 0.28 (0.24-0.36) K/mm3 Eos # (Auto) 0.18 (0.04-0.36) K/mm3 Baso # (Auto) 0.00 L (0.01-0.08) K/mm3 Neutrophils % (Manual) (40-60) % Band Neutrophils % (0-10) % Lymphocytes % (Manual) (20-40) % Atypical Lymphs % % Monocytes % (Manual) (2-10) % Eosinophils % (Manual) (0.7-5.8) % Basophils % (Manual) (0.1-1.2) Myelocytes % Manual Slide Review Abnormal smear Platelet Estimate RBC Morph Comment PT (9.7-12.0) SECONDS INR APTT (21.7-31.4) SECONDS D-Dimer, Quantitative 0.22 (0.19-0.50) mg/L Puncture Site ABG pH (7.35-7.45) ABG pCO2 (35.0-45.0) mmHg ABG pO2 (80.0-100.0) mmHg ABG HCO3 (22.0-26.0) meq/L ABG O2 Saturation (96.0-97.0) % ABG Base Excess (-2-2.0) Yao Test O2 Delivery Device Oxygen Flow Rate FiO2 (21.00-100.00) % Sodium 144 (136-145) mEq/L Potassium 3.8 (3.5-5.1) mEq/L Chloride 107 (98-107) mEq/L Carbon Dioxide 28 (21-32) mEq/L Anion Gap 12.8 (5-15) BUN 13 (7-18) mg/dL Creatinine 0.8 (0.55-1.02) mg/dL Est Cr Clr Drug Dosing 67.00 mL/min Estimated GFR (MDRD) > 60 (>60) mL/min BUN/Creatinine Ratio 16.3 (14-18) Glucose 169 H (70-99) mg/dL Lactic Acid (0.4-2.0) mmol/L Calcium 7.5 L (8.5-10.1) mg/dL Magnesium (1.8-2.4) mg/dL Ferritin (8-252) ng/ml Total Bilirubin (0.2-1.0) mg/dL Direct Bilirubin (0.0-0.2) mg/dl Indirect Bilirubin AST (15-37) U/L ALT (14-59) U/L Alkaline Phosphatase (46-116) U/L Lactate Dehydrogenase (81-234) U/L Troponin I (0.00-0.056) ng/mL C-Reactive Protein (<1.0) mg/dL NT-Pro-B Natriuret Pep (0-125) pg/mL Total Protein (6.4-8.2) g/dl Albumin (3.4-5.0) g/dl Globulin gm/dL Albumin/Globulin Ratio (1-2) 04/02/21 Range/Units 05:06 WBC (3.98-10.04) K/mm3 RBC (3.98-5.22) M/mm3 Hgb (11.2-15.7) gm/dl Hct (34.1-44.9) % MCV (79.4-94.8) fl MCH (25.6-32.2) pg MCHC (32.2-35.5) g/dl RDW Std Deviation (36.4-46.3) fL Plt Count (182-369) K/mm3 MPV (9.4-12.3) fl Neut % (Auto) (34.0-71.1) % Lymph % (Auto) (19.3-51.7) % Saunders % (Auto) (4.7-12.5) % Eos % (Auto) (0.7-5.8) Baso % (Auto) (0.1-1.2) % Neut # (Auto) (1.56-6.13) K/mm3 Lymph # (Auto) (1.18-3.74) K/mm3 Saunders # (Auto) (0.24-0.36) K/mm3 Eos # (Auto) (0.04-0.36) K/mm3 Baso # (Auto) (0.01-0.08) K/mm3 Neutrophils % (Manual) (40-60) % Band Neutrophils % (0-10) % Lymphocytes % (Manual) (20-40) % Atypical Lymphs % % Monocytes % (Manual) (2-10) % Eosinophils % (Manual) (0.7-5.8) % Basophils % (Manual) (0.1-1.2) Myelocytes % Manual Slide Review Platelet Estimate RBC Morph Comment PT (9.7-12.0) SECONDS INR APTT (21.7-31.4) SECONDS D-Dimer, Quantitative (0.19-0.50) mg/L Puncture Site ABG pH (7.35-7.45) ABG pCO2 (35.0-45.0) mmHg ABG pO2 (80.0-100.0) mmHg ABG HCO3 (22.0-26.0) meq/L ABG O2 Saturation (96.0-97.0) % ABG Base Excess (-2-2.0) Yao Test O2 Delivery Device Oxygen Flow Rate FiO2 (21.00-100.00) % Sodium (136-145) mEq/L Potassium (3.5-5.1) mEq/L Chloride (98-107) mEq/L Carbon Dioxide (21-32) mEq/L Anion Gap (5-15) BUN (7-18) mg/dL Creatinine (0.55-1.02) mg/dL Est Cr Clr Drug Dosing mL/min Estimated GFR (MDRD) (>60) mL/min BUN/Creatinine Ratio (14-18) Glucose (70-99) mg/dL Lactic Acid (0.4-2.0) mmol/L Calcium (8.5-10.1) mg/dL Magnesium (1.8-2.4) mg/dL Ferritin (8-252) ng/ml Total Bilirubin 0.6 (0.2-1.0) mg/dL Direct Bilirubin 0.20 (0.0-0.2) mg/dl Indirect Bilirubin 0.40 AST 32 (15-37) U/L ALT 64 H (14-59) U/L Alkaline Phosphatase 64 (46-116) U/L Lactate Dehydrogenase (81-234) U/L Troponin I (0.00-0.056) ng/mL C-Reactive Protein (<1.0) mg/dL NT-Pro-B Natriuret Pep (0-125) pg/mL Total Protein 6.5 (6.4-8.2) g/dl Albumin 2.8 L (3.4-5.0) g/dl Globulin 3.7 gm/dL Albumin/Globulin Ratio 0.8 L (1-2) Med Orders - Current: Current Medications Acetaminophen (Acetaminophen 325 Mg Tab) 650 mg PO Q4H PRN PRN Reason: Pain (Mild 1-3)/fever Albuterol (Albuterol 6.7 Gm Inhaler) 0 gm INH Q2H PRN PRN Reason: Dyspnea Last Admin: 04/01/21 21:21 Dose: 2 puff Documented by: Azithromycin (Azithromycin 250 Mg Tab) 500 mg PO 1900 [facility] Stop: 04/04/21 19:01 Benzonatate (Benzonatate 100 Mg Cap) 100 mg PO TID PRN PRN Reason: Cough Dexamethasone (Dexamethasone 4 Mg Tab) 6 mg PO DAILY [facility] Stop: 04/07/21 17:46 Last Admin: 04/02/21 08:44 Dose: 6 mg Documented by: Enoxaparin Sodium (Enoxaparin 30 Mg/0.3 Ml Syringe) 30 mg SUBCUT Q12H [facility] Guaifenesin/Phenylephrine HCl (Guaifenesin/Dextromethorphan 100-10 Mg/5 Ml Soln 5 Ml Cup) 5 ml PO Q4H PRN PRN Reason: Cough Remdesivir 100 mg/ Sodium (Chloride) 100 mls @ 100 mls/hr IV Q24H [facility] Stop: 04/05/21 22:59 Ondansetron HCl (Ondansetron 4 Mg Tab.Dis) 4 mg PO Q4H PRN PRN Reason: nausea, able to take PO Sodium Chloride (Sodium Chloride 0.9% 10 Ml Syringe) 10 ml FLUSH ASDIRECTED PRN PRN Reason: Keep Vein Open Last Admin: 04/01/21 16:07 Dose: 10 ml Documented by: Discontinued Medications Azithromycin (Azithromycin 250 Mg Tab) 500 mg PO DAILY [facility] Stop: 04/04/21 18:01 Last Admin: 04/01/21 19:04 Dose: 500 mg Documented by: Enoxaparin Sodium (Enoxaparin 40 Mg/0.4 Ml Syringe) 40 mg SUBCUT Q12H [facility] Last Admin: 04/01/21 19:04 Dose: 40 mg Documented by: Enoxaparin Sodium (Enoxaparin 40 Mg/0.4 Ml Syringe) 40 mg SUBCUT DAILY [facility] Last Admin: 04/02/21 08:45 Dose: 40 mg Documented by: Sodium Chloride (Normal Saline) 1,000 mls @ 250 mls/hr IV ONETIME ONE Stop: 04/01/21 19:28 Last Admin: 04/01/21 16:07 Dose: 250 mls/hr Documented by: Remdesivir 100 mg/ Sodium (Chloride) 250 mls @ 250 mls/hr IV ONETIME [facility] Stop: 04/06/21 18:01 Remdesivir 200 mg/ Sodium (Chloride) 250 mls @ 250 mls/hr IV ONETIME ONE Stop: 04/01/21 20:42 Last Admin: 04/01/21 21:32 Dose: 250 mls/hr Documented by: Oxycodone HCl (Oxycodone 5 Mg Tab) 5 mg PO Q4H PRN PRN Reason: Pain (moderate 4-6) - Exam Physical Findings Comments:: This is a morbid obese middle-aged female who is awake and alert in no acute distress. She is able to speak in full sentences CVS: S1-S2 appreciated. Regular rate and rhythm. no murmurs, rubs or gallops Lungs: Diminished bilaterally without any rales or wheezes Abdomen: Obese, soft, nontender bowel sounds are present Extremities: No clubbing, cyanosis or edema. Peripheral pulses 2+. Neuro exam: Nonfocal. Gait is normal sensation is intact. Psych: Mood and affect are stable - Patient Data Lab Results Last 24 hrs: Laboratory Results - last 24 hr 04/01/21 04/01/21 04/01/21 Range/Units 15:28 16:04 16:04 WBC 8.53 (3.98-10.04) K/mm3 RBC 4.16 (3.98-5.22) M/mm3 Hgb 12.9 (11.2-15.7) gm/dl Hct 39.9 (34.1-44.9) % MCV 95.9 H (79.4-94.8) fl MCH 31.0 (25.6-32.2) pg MCHC 32.3 (32.2-35.5) g/dl RDW Std Deviation 45.1 (36.4-46.3) fL Plt Count 193 (182-369) K/mm3 MPV 10.9 (9.4-12.3) fl Neut % (Auto) (34.0-71.1) % Lymph % (Auto) (19.3-51.7) % Saunders % (Auto) (4.7-12.5) % Eos % (Auto) (0.7-5.8) Baso % (Auto) (0.1-1.2) % Neut # (Auto) (1.56-6.13) K/mm3 Lymph # (Auto) (1.18-3.74) K/mm3 Saunders # (Auto) (0.24-0.36) K/mm3 Eos # (Auto) (0.04-0.36) K/mm3 Baso # (Auto) (0.01-0.08) K/mm3 Neutrophils % (Manual) 76 H (40-60) % Band Neutrophils % 0 (0-10) % Lymphocytes % (Manual) 14 L (20-40) % Atypical Lymphs % 4 % Monocytes % (Manual) 4 (2-10) % Eosinophils % (Manual) 0 L (0.7-5.8) % Basophils % (Manual) 0 L (0.1-1.2) Myelocytes % 2 Manual Slide Review Platelet Estimate Adequate RBC Morph Comment Normal PT (9.7-12.0) SECONDS INR APTT (21.7-31.4) SECONDS D-Dimer, Quantitative (0.19-0.50) mg/L Puncture Site Lt radial ABG pH 7.49 H (7.35-7.45) ABG pCO2 39.4 (35.0-45.0) mmHg ABG pO2 51.0 L (80.0-100.0) mmHg ABG HCO3 29.5 H (22.0-26.0) meq/L ABG O2 Saturation 83.2 L (96.0-97.0) % ABG Base Excess 6.1 H (-2-2.0) Yao Test Positive O2 Delivery Device Room air Oxygen Flow Rate 0.0 FiO2 0.00 L (21.00-100.00) % Sodium (136-145) mEq/L Potassium (3.5-5.1) mEq/L Chloride (98-107) mEq/L Carbon Dioxide (21-32) mEq/L Anion Gap (5-15) BUN (7-18) mg/dL Creatinine (0.55-1.02) mg/dL Est Cr Clr Drug Dosing mL/min Estimated GFR (MDRD) (>60) mL/min BUN/Creatinine Ratio (14-18) Glucose (70-99) mg/dL Lactic Acid (0.4-2.0) mmol/L Calcium (8.5-10.1) mg/dL Magnesium (1.8-2.4) mg/dL Ferritin (8-252) ng/ml Total Bilirubin (0.2-1.0) mg/dL Direct Bilirubin (0.0-0.2) mg/dl Indirect Bilirubin AST (15-37) U/L ALT (14-59) U/L Alkaline Phosphatase (46-116) U/L Lactate Dehydrogenase (81-234) U/L Troponin I (0.00-0.056) ng/mL C-Reactive Protein 4.6 H* (<1.0) mg/dL NT-Pro-B Natriuret Pep (0-125) pg/mL Total Protein (6.4-8.2) g/dl Albumin (3.4-5.0) g/dl Globulin gm/dL Albumin/Globulin Ratio (1-2) 04/01/21 04/01/21 04/01/21 Range/Units 16:04 16:04 16:04 WBC (3.98-10.04) K/mm3 RBC (3.98-5.22) M/mm3 Hgb (11.2-15.7) gm/dl Hct (34.1-44.9) % MCV (79.4-94.8) fl MCH (25.6-32.2) pg MCHC (32.2-35.5) g/dl RDW Std Deviation (36.4-46.3) fL Plt Count (182-369) K/mm3 MPV (9.4-12.3) fl Neut % (Auto) (34.0-71.1) % Lymph % (Auto) (19.3-51.7) % Saunders % (Auto) (4.7-12.5) % Eos % (Auto) (0.7-5.8) Baso % (Auto) (0.1-1.2) % Neut # (Auto) (1.56-6.13) K/mm3 Lymph # (Auto) (1.18-3.74) K/mm3 Saunders # (Auto) (0.24-0.36) K/mm3 Eos # (Auto) (0.04-0.36) K/mm3 Baso # (Auto) (0.01-0.08) K/mm3 Neutrophils % (Manual) (40-60) % Band Neutrophils % (0-10) % Lymphocytes % (Manual) (20-40) % Atypical Lymphs % % Monocytes % (Manual) (2-10) % Eosinophils % (Manual) (0.7-5.8) % Basophils % (Manual) (0.1-1.2) Myelocytes % Manual Slide Review Platelet Estimate RBC Morph Comment PT 10.5 (9.7-12.0) SECONDS INR 0.98 APTT 31.9 H (21.7-31.4) SECONDS D-Dimer, Quantitative 0.23 (0.19-0.50) mg/L Puncture Site ABG pH (7.35-7.45) ABG pCO2 (35.0-45.0) mmHg ABG pO2 (80.0-100.0) mmHg ABG HCO3 (22.0-26.0) meq/L ABG O2 Saturation (96.0-97.0) % ABG Base Excess (-2-2.0) Yao Test O2 Delivery Device Oxygen Flow Rate FiO2 (21.00-100.00) % Sodium 142 (136-145) mEq/L Potassium 3.3 L (3.5-5.1) mEq/L Chloride 102 (98-107) mEq/L Carbon Dioxide 30 (21-32) mEq/L Anion Gap 13.3 (5-15) BUN 15 (7-18) mg/dL Creatinine 1.0 (0.55-1.02) mg/dL Est Cr Clr Drug Dosing 51.34 mL/min Estimated GFR (MDRD) 57 (>60) mL/min BUN/Creatinine Ratio 15.0 (14-18) Glucose 155 H (70-99) mg/dL Lactic Acid (0.4-2.0) mmol/L Calcium 8.1 L (8.5-10.1) mg/dL Magnesium 2.2 (1.8-2.4) mg/dL Ferritin (8-252) ng/ml Total Bilirubin 0.8 (0.2-1.0) mg/dL Direct Bilirubin (0.0-0.2) mg/dl Indirect Bilirubin AST 42 H (15-37) U/L ALT 70 H (14-59) U/L Alkaline Phosphatase 66 (46-116) U/L Lactate Dehydrogenase 258 H (81-234) U/L Troponin I 0.017 (0.00-0.056) ng/mL C-Reactive Protein (<1.0) mg/dL NT-Pro-B Natriuret Pep 756 H (0-125) pg/mL Total Protein 6.8 (6.4-8.2) g/dl Albumin 3.1 L (3.4-5.0) g/dl Globulin 3.7 gm/dL Albumin/Globulin Ratio 0.8 L (1-2) 04/01/21 04/01/21 04/01/21 Range/Units 16:04 16:04 18:20 WBC (3.98-10.04) K/mm3 RBC (3.98-5.22) M/mm3 Hgb (11.2-15.7) gm/dl Hct (34.1-44.9) % MCV (79.4-94.8) fl MCH (25.6-32.2) pg MCHC (32.2-35.5) g/dl RDW Std Deviation (36.4-46.3) fL Plt Count (182-369) K/mm3 MPV (9.4-12.3) fl Neut % (Auto) (34.0-71.1) % Lymph % (Auto) (19.3-51.7) % Saunders % (Auto) (4.7-12.5) % Eos % (Auto) (0.7-5.8) Baso % (Auto) (0.1-1.2) % Neut # (Auto) (1.56-6.13) K/mm3 Lymph # (Auto) (1.18-3.74) K/mm3 Saunders # (Auto) (0.24-0.36) K/mm3 Eos # (Auto) (0.04-0.36) K/mm3 Baso # (Auto) (0.01-0.08) K/mm3 Neutrophils % (Manual) (40-60) % Band Neutrophils % (0-10) % Lymphocytes % (Manual) (20-40) % Atypical Lymphs % % Monocytes % (Manual) (2-10) % Eosinophils % (Manual) (0.7-5.8) % Basophils % (Manual) (0.1-1.2) Myelocytes % Manual Slide Review Platelet Estimate RBC Morph Comment PT (9.7-12.0) SECONDS INR APTT (21.7-31.4) SECONDS D-Dimer, Quantitative (0.19-0.50) mg/L Puncture Site ABG pH (7.35-7.45) ABG pCO2 (35.0-45.0) mmHg ABG pO2 (80.0-100.0) mmHg ABG HCO3 (22.0-26.0) meq/L ABG O2 Saturation (96.0-97.0) % ABG Base Excess (-2-2.0) Yao Test O2 Delivery Device Oxygen Flow Rate FiO2 (21.00-100.00) % Sodium (136-145) mEq/L Potassium (3.5-5.1) mEq/L Chloride (98-107) mEq/L Carbon Dioxide (21-32) mEq/L Anion Gap (5-15) BUN (7-18) mg/dL Creatinine (0.55-1.02) mg/dL Est Cr Clr Drug Dosing mL/min Estimated GFR (MDRD) (>60) mL/min BUN/Creatinine Ratio (14-18) Glucose (70-99) mg/dL Lactic Acid 1.4 (0.4-2.0) mmol/L Calcium (8.5-10.1) mg/dL Magnesium (1.8-2.4) mg/dL Ferritin 408 H (8-252) ng/ml Total Bilirubin 0.8 (0.2-1.0) mg/dL Direct Bilirubin 0.30 H (0.0-0.2) mg/dl Indirect Bilirubin 0.50 AST 42 H (15-37) U/L ALT 69 H (14-59) U/L Alkaline Phosphatase 69 (46-116) U/L Lactate Dehydrogenase (81-234) U/L Troponin I (0.00-0.056) ng/mL C-Reactive Protein (<1.0) mg/dL NT-Pro-B Natriuret Pep (0-125) pg/mL Total Protein 6.7 (6.4-8.2) g/dl Albumin 3.0 L (3.4-5.0) g/dl Globulin 3.7 gm/dL Albumin/Globulin Ratio 0.8 L (1-2) 04/01/21 04/02/21 04/02/21 Range/Units 18:20 05:06 05:06 WBC 6.51 (3.98-10.04) K/mm3 RBC 4.03 (3.98-5.22) M/mm3 Hgb 12.5 (11.2-15.7) gm/dl Hct 38.3 (34.1-44.9) % MCV 95.0 H (79.4-94.8) fl MCH 31.0 (25.6-32.2) pg MCHC 32.6 (32.2-35.5) g/dl RDW Std Deviation 44.2 (36.4-46.3) fL Plt Count 171 L (182-369) K/mm3 MPV 10.4 (9.4-12.3) fl Neut % (Auto) 77.8 H (34.0-71.1) % Lymph % (Auto) 14.9 L (19.3-51.7) % Saunders % (Auto) 4.3 L (4.7-12.5) % Eos % (Auto) 2.8 (0.7-5.8) Baso % (Auto) 0.0 L (0.1-1.2) % Neut # (Auto) 5.07 (1.56-6.13) K/mm3 Lymph # (Auto) 0.97 L (1.18-3.74) K/mm3 Saunders # (Auto) 0.28 (0.24-0.36) K/mm3 Eos # (Auto) 0.18 (0.04-0.36) K/mm3 Baso # (Auto) 0.00 L (0.01-0.08) K/mm3 Neutrophils % (Manual) (40-60) % Band Neutrophils % (0-10) % Lymphocytes % (Manual) (20-40) % Atypical Lymphs % % Monocytes % (Manual) (2-10) % Eosinophils % (Manual) (0.7-5.8) % Basophils % (Manual) (0.1-1.2) Myelocytes % Manual Slide Review Abnormal smear Platelet Estimate RBC Morph Comment PT (9.7-12.0) SECONDS INR APTT (21.7-31.4) SECONDS D-Dimer, Quantitative 0.22 (0.19-0.50) mg/L Puncture Site ABG pH (7.35-7.45) ABG pCO2 (35.0-45.0) mmHg ABG pO2 (80.0-100.0) mmHg ABG HCO3 (22.0-26.0) meq/L ABG O2 Saturation (96.0-97.0) % ABG Base Excess (-2-2.0) Yao Test O2 Delivery Device Oxygen Flow Rate FiO2 (21.00-100.00) % Sodium 144 (136-145) mEq/L Potassium 3.8 (3.5-5.1) mEq/L Chloride 107 (98-107) mEq/L Carbon Dioxide 28 (21-32) mEq/L Anion Gap 12.8 (5-15) BUN 13 (7-18) mg/dL Creatinine 0.8 (0.55-1.02) mg/dL Est Cr Clr Drug Dosing 67.00 mL/min Estimated GFR (MDRD) > 60 (>60) mL/min BUN/Creatinine Ratio 16.3 (14-18) Glucose 169 H (70-99) mg/dL Lactic Acid (0.4-2.0) mmol/L Calcium 7.5 L (8.5-10.1) mg/dL Magnesium (1.8-2.4) mg/dL Ferritin (8-252) ng/ml Total Bilirubin (0.2-1.0) mg/dL Direct Bilirubin (0.0-0.2) mg/dl Indirect Bilirubin AST (15-37) U/L ALT (14-59) U/L Alkaline Phosphatase (46-116) U/L Lactate Dehydrogenase (81-234) U/L Troponin I (0.00-0.056) ng/mL C-Reactive Protein (<1.0) mg/dL NT-Pro-B Natriuret Pep (0-125) pg/mL Total Protein (6.4-8.2) g/dl Albumin (3.4-5.0) g/dl Globulin gm/dL Albumin/Globulin Ratio (1-2) / Range/Units 05:06 WBC (3.98-10.04) K/mm3 RBC (3.98-5.22) M/mm3 Hgb (11.2-15.7) gm/dl Hct (34.1-44.9) % MCV (79.4-94.8) fl MCH (25.6-32.2) pg MCHC (32.2-35.5) g/dl RDW Std Deviation (36.4-46.3) fL Plt Count (182-369) K/mm3 MPV (9.4-12.3) fl Neut % (Auto) (34.0-71.1) % Lymph % (Auto) (19.3-51.7) % Saunders % (Auto) (4.7-12.5) % Eos % (Auto) (0.7-5.8) Baso % (Auto) (0.1-1.2) % Neut # (Auto) (1.56-6.13) K/mm3 Lymph # (Auto) (1.18-3.74) K/mm3 Saunders # (Auto) (0.24-0.36) K/mm3 Eos # (Auto) (0.04-0.36) K/mm3 Baso # (Auto) (0.01-0.08) K/mm3 Neutrophils % (Manual) (40-60) % Band Neutrophils % (0-10) % Lymphocytes % (Manual) (20-40) % Atypical Lymphs % % Monocytes % (Manual) (2-10) % Eosinophils % (Manual) (0.7-5.8) % Basophils % (Manual) (0.1-1.2) Myelocytes % Manual Slide Review Platelet Estimate RBC Morph Comment PT (9.7-12.0) SECONDS INR APTT (21.7-31.4) SECONDS D-Dimer, Quantitative (0.19-0.50) mg/L Puncture Site ABG pH (7.35-7.45) ABG pCO2 (35.0-45.0) mmHg ABG pO2 (80.0-100.0) mmHg ABG HCO3 (22.0-26.0) meq/L ABG O2 Saturation (96.0-97.0) % ABG Base Excess (-2-2.0) Yao Test O2 Delivery Device Oxygen Flow Rate FiO2 (21.00-100.00) % Sodium (136-145) mEq/L Potassium (3.5-5.1) mEq/L Chloride (98-107) mEq/L Carbon Dioxide (21-32) mEq/L Anion Gap (5-15) BUN (7-18) mg/dL Creatinine (0.55-1.02) mg/dL Est Cr Clr Drug Dosing mL/min Estimated GFR (MDRD) (>60) mL/min BUN/Creatinine Ratio (14-18) Glucose (70-99) mg/dL Lactic Acid (0.4-2.0) mmol/L Calcium (8.5-10.1) mg/dL Magnesium (1.8-2.4) mg/dL Ferritin (8-252) ng/ml Total Bilirubin 0.6 (0.2-1.0) mg/dL Direct Bilirubin 0.20 (0.0-0.2) mg/dl Indirect Bilirubin 0.40 AST 32 (15-37) U/L ALT 64 H (14-59) U/L Alkaline Phosphatase 64 (46-116) U/L Lactate Dehydrogenase (81-234) U/L Troponin I (0.00-0.056) ng/mL C-Reactive Protein (<1.0) mg/dL NT-Pro-B Natriuret Pep (0-125) pg/mL Total Protein 6.5 (6.4-8.2) g/dl Albumin 2.8 L (3.4-5.0) g/dl Globulin 3.7 gm/dL Albumin/Globulin Ratio 0.8 L (1-2) Result Diagrams: 04/02/21 05:06 04/02/21 05:06 Sepsis Event Note - Evaluation Sepsis Screening Result: No Definite Risk - Focused Exam Vital Signs: Vital Signs Temp Pulse Resp BP Pulse Ox Pulse Ox 04/02/21 10:50 97.5 F 60 20 130/48 L 89 L 04/02/21 09:35 92 L 04/02/21 08:02 97.9 F 57 L 18 122/71 90 L 04/02/21 05:03 97.7 F 51 L 18 100/64 93 L - Problem List & Annotations (1) Acute respiratory failure due to COVID-19 SNOMED Code(s): 650604323 Code(s): U07.1 - COVID-19; J96.00 - ACUTE RESPIRATORY FAILURE, UNSP W HYPOXIA OR HYPERCAPNIA Status: Acute Current Visit: Yes Annotation/Comment:: Continue with O2 supplementation. Incentive spirometry Q hr while awake. Continue to encourage proning as much as possible. (2) COVID-19 SNOMED Code(s): 197297916 Code(s): U07.1 - COVID-19 Status: Acute Current Visit: Yes Annotati on/Comment:: Continue remdesivir x 5 days, Zithromax and Rocephin Continue Decadron for a total of 10 days Increase lovenox dose to 30 mg subcu every 12. (3) Hypoxia SNOMED Code(s): 984116772 Code(s): R09.02 - HYPOXEMIA Status: Acute Current Visit: Yes (4) Morbid obesity due to excess calories SNOMED Code(s): 501055278 Code(s): E66.01 - MORBID (SEVERE) OBESITY DUE TO EXCESS CALORIES Status: Acute Current Visit: Yes Annotation/Comment:: lifestyle modification counseling. (5) DVT prophylaxis SNOMED Code(s): 566280837, 128886681 Code(s): Z29.9 - ENCOUNTER FOR PROPHYLACTIC MEASURES, UNSPECIFIED Status: Acute Current Visit: Yes (6) Full code status SNOMED Code(s): 089887369 Code(s): Z78.9 - OTHER SPECIFIED HEALTH STATUS Status: Acute Current Visit: Yes (7) DVT prophylaxis SNOMED Code(s): 254009867, 946766862 Code(s): Z29.9 - ENCOUNTER FOR PROPHYLACTIC MEASURES, UNSPECIFIED Status: Acute Current Visit: Yes Annotation/Comment:: lovenox SQ - Problem List Review Problem List Initiated/Reviewed/Updated: Yes - My Orders Last 24 Hours: My Active Orders 04/01/21 Dinner Regular Diet [DIET] 04/01/21 17:36 Oxygen Therapy [RC] PRN VTE/DVT Education [RC] DAILY Vital Signs [RC] Q4HR Acetaminophen [TylenoL] 650 mg PO Q4H PRN Ondansetron [Zofran ODT] 4 mg PO Q4H PRN Resuscitation Status Routine 04/01/21 17:45 dexAMETHasone 6 mg PO DAILY 04/01/21 17:48 RT Incentive Spirometry [RC] Q1HWA Benzonatate [Tessalon Perles] 100 mg PO TID PRN 04/01/21 17:49 Dextromethorphan/guaiFENesin [Robitussin DM] 5 ml PO Q4H PRN 04/01/21 17:50 Communication Order [RC] BID 04/01/21 18:06 Albuterol [Proventil HFA] See Dose Instructions INH Q2H PRN 04/02/21 15:00 Enoxaparin [Lovenox] 30 mg SUBCUT Q12H 04/02/21 19:00 Azithromycin [Zithromax] 500 mg PO 1900 04/02/21 22:00 Remdesivir 100 mg Sodium Chloride 0.9% [Normal Saline] 100 ml IV Q24H 04/03/21 17:45 HEPATIC FUNCTION PANEL,HFP [CHEM] DAILY 04/04/21 17:45 HEPATIC FUNCTION PANEL,HFP [CHEM] DAILY 04/05/21 17:45 HEPATIC FUNCTION PANEL,HFP [CHEM] DAILY
[2021-04-02] MEDS ORDERED: REMDESIVIR 100 MG in Sodium Chloride 0.9% 250 ML IV SCH (18:00)
[2021-04-02] MEDS: Azithromycin 250 MG Tab PO SCH (18:23)
[2021-04-02] MEDS: Albuterol 6.7 GM Inhaler INH PRN (20:24)
[2021-04-02] MEDS: Enoxaparin 30 MG/0.3 ML Syringe SUBCUT SCH (20:43)
[2021-04-02] MEDS: REMDESIVIR 100 MG in Sodium Chloride 0.9% 100 ML IV SCH ×2 (20:54→22:00)
[2021-04-03] MEDS: Enoxaparin 30 MG/0.3 ML Syringe SUBCUT SCH ×2 (08:16→21:37)
[2021-04-03] MEDS: Dexamethasone 4 MG Tab PO SCH (08:17)
--- NOTE | 2021-04-03 08:58 | PCM.PN ---
<Eric Mai - Last Filed: 04/03/21 11:41> - General Info Date of Service: 04/03/21 Admission Dx/Problem (Free Text): Admission Diagnosis/Problem Admission Diagnosis/Problem Hypoxia Functional Status: Reports: Pain Controlled, Tolerating Diet, Ambulating, Urinating, New Symptoms, Incentive Spirometry - Review of Systems General: Reports: No Symptoms, Weakness, Fatigue, Malaise. Denies: Fever, Chills HEENT: Reports: No Symptoms. Denies: Headaches, Sore Throat Pulmonary: Reports: Cough. Denies: Shortness of Breath (only with coughing attacks- not at rest ), Pleuritic Chest Pain, Sputum, Wheezing Cardiovascular: Reports: No Symptoms. Denies: Chest Pain, Palpitations, Dyspnea on Exertion, Edema Gastrointestinal: Reports: No Symptoms. Denies: Abdominal Pain, Constipation, Diarrhea, Nausea, Vomiting Genitourinary: Reports: No Symptoms. Denies: Pain Musculoskeletal: Reports: No Symptoms Skin: Reports: No Symptoms. Denies: Cyanosis Neurological: Reports: No Symptoms. Denies: Confusion, Dizziness, Headache, Numbness, Pre-Existing Deficit, Seizure, Syncope, Tingling, Difficulty Walking, Gait Disturbance Psychiatric: Reports: No Symptoms - Patient Data Vitals - Most Recent: Last Vital Signs Temp 97.9 F 04/03/21 07:48 Pulse 51 L 04/03/21 07:48 Resp 20 04/03/21 07:48 BP 124/59 L 04/03/21 07:48 Pulse Ox 91 L 04/03/21 07:48 Weight - Most Recent: 292 lb 6.4 oz I&O - Last 24 Hours: Intake & Output 04/02/21 04/03/21 04/03/21 22:59 06:59 14:59 Intake Total 600 550 Output Total 355 600 Balance 245 -50 Lab Results Last 24 Hours: Laboratory Results - last 24 hr 04/02/21 Range/Units 05:06 Total Bilirubin 0.6 (0.2-1.0) mg/dL Direct Bilirubin 0.20 (0.0-0.2) mg/dl Indirect Bilirubin 0.40 AST 32 (15-37) U/L ALT 64 H (14-59) U/L Alkaline Phosphatase 64 (46-116) U/L Total Protein 6.5 (6.4-8.2) g/dl Albumin 2.8 L (3.4-5.0) g/dl Globulin 3.7 gm/dL Albumin/Globulin Ratio 0.8 L (1-2) Júnior Results Last 24 Hours: Microbiology 04/01/21 16:17 Aerobic Blood Culture - Preliminary Blood - Venous - Lab Draw NO GROWTH AFTER 1 DAY Anaerobic Blood Culture - Preliminary NO GROWTH AFTER 1 DAY 04/01/21 16:04 Aerobic Blood Culture - Preliminary Blood - Venous NO GROWTH AFTER 1 DAY Anaerobic Blood Culture - Preliminary NO GROWTH AFTER 1 DAY Med Orders - Current: Current Medications Acetaminophen (Acetaminophen 325 Mg Tab) 650 mg PO Q4H PRN PRN Reason: Pain (Mild 1-3)/fever Albuterol (Albuterol 6.7 Gm Inhaler) 0 gm INH Q2H PRN PRN Reason: Dyspnea Last Admin: 04/02/21 20:24 Dose: 2 puff Documented by: Azithromycin (Azithromycin 250 Mg Tab) 500 mg PO 1900 [facility] Stop: 04/04/21 19:01 Last Admin: 04/02/21 18:23 Dose: 500 mg Documented by: Benzonatate (Benzonatate 100 Mg Cap) 100 mg PO TID PRN PRN Reason: Cough Dexamethasone (Dexamethasone 4 Mg Tab) 6 mg PO DAILY [facility] Stop: 04/07/21 17:46 Last Admin: 04/03/21 08:17 Dose: 6 mg Documented by: Enoxaparin Sodium (Enoxaparin 30 Mg/0.3 Ml Syringe) 30 mg SUBCUT Q12H [facility] Last Admin: 04/03/21 08:16 Dose: 30 mg Documented by: Guaifenesin/Phenylephrine HCl (Guaifenesin/Dextromethorphan 100-10 Mg/5 Ml Soln 5 Ml Cup) 5 ml PO Q4H PRN PRN Reason: Cough Remdesivir 100 mg/ Sodium (Chloride) 100 mls @ 100 mls/hr IV Q24H [facility] Stop: 04/05/21 22:59 Last Admin: 04/02/21 22:00 Dose: Not Given Documented by: Ondansetron HCl (Ondansetron 4 Mg Tab.Dis) 4 mg PO Q4H PRN PRN Reason: nausea, able to take PO Sodium Chloride (Sodium Chloride 0.9% 10 Ml Syringe) 10 ml FLUSH ASDIRECTED PRN PRN Reason: Keep Vein Open Last Admin: 04/01/21 16:07 Dose: 10 ml Documented by: Discontinued Medications Azithromycin (Azithromycin 250 Mg Tab) 500 mg PO DAILY [facility] Stop: 04/04/21 18:01 Last Admin: 04/01/21 19:04 Dose: 500 mg Documented by: Enoxaparin Sodium (Enoxaparin 40 Mg/0.4 Ml Syringe) 40 mg SUBCUT Q12H [facility] Last Admin: 04/01/21 19:04 Dose: 40 mg Documented by: Enoxaparin Sodium (Enoxaparin 40 Mg/0.4 Ml Syringe) 40 mg SUBCUT DAILY [facility] Last Admin: 04/02/21 08:45 Dose: 40 mg Documented by: Sodium Chloride (Normal Saline) 1,000 mls @ 250 mls/hr IV ONETIME ONE Stop: 04/01/21 19:28 Last Admin: 04/01/21 16:07 Dose: 250 mls/hr Documented by: Remdesivir 100 mg/ Sodium (Chloride) 250 mls @ 250 mls/hr IV ONETIME [facility] Stop: 04/06/21 18:01 Remdesivir 200 mg/ Sodium (Chloride) 250 mls @ 250 mls/hr IV ONETIME ONE Stop: 04/01/21 20:42 Last Admin: 04/01/21 21:32 Dose: 250 mls/hr Documented by: Oxycodone HCl (Oxycodone 5 Mg Tab) 5 mg PO Q4H PRN PRN Reason: Pain (moderate 4-6) - Exam Quality Assessment: Supplemental Oxygen (1L ), DVT Prophylaxis. No: Urine Catheter General: Alert, Oriented, Cooperative, No Acute Distress HEENT: Pupils Equal, Pupils Reactive, Mucous Membr. Moist/[place] Neck: Supple, Trachea Midline Lungs: Clear to Auscultation, Normal Respiratory Effort, Decreased Breath Sounds Cardiovascular: Regular Rate, Regular Rhythm GI/Abdominal Exam: Normal Bowel Sounds, Soft, Non-Tender, No Distention (Female) Exam: Deferred Back Exam: Normal Inspection, Full Range of Motion Extremities: Normal Inspection, Normal Range of Motion, Non-Tender, No Pedal Edema, Normal Capillary Refill Peripheral Pulses: 2+: Radial (L), Radial (R), Dorsalis Pedis (L), Dorsalis Pedis (R) Skin: Warm, Dry, Intact Neurological: No New Focal Deficit Psy/Mental Status: Alert, Normal Affect, Normal Mood - Patient Data Lab Results Last 24 hrs: Laboratory Results - last 24 hr 04/02/21 Range/Units 05:06 Total Bilirubin 0.6 (0.2-1.0) mg/dL Direct Bilirubin 0.20 (0.0-0.2) mg/dl Indirect Bilirubin 0.40 AST 32 (15-37) U/L ALT 64 H (14-59) U/L Alkaline Phosphatase 64 (46-116) U/L Total Protein 6.5 (6.4-8.2) g/dl Albumin 2.8 L (3.4-5.0) g/dl Globulin 3.7 gm/dL Albumin/Globulin Ratio 0.8 L (1-2) Result Diagrams: 04/02/21 05:06 04/02/21 05:06 Júnior Results Last 24 hrs: Microbiology 04/01/21 16:17 Aerobic Blood Culture - Preliminary Blood - Venous - Lab Draw NO GROWTH AFTER 1 DAY Anaerobic Blood Culture - Preliminary NO GROWTH AFTER 1 DAY 04/01/21 16:04 Aerobic Blood Culture - Preliminary Blood - Venous NO GROWTH AFTER 1 DAY Anaerobic Blood Culture - Preliminary NO GROWTH AFTER 1 DAY Sepsis Event Note - Evaluation Sepsis Screening Result: No Definite Risk - Focused Exam Vital Signs: Vital Signs Temp Pulse Resp BP Pulse Ox 04/03/21 07:48 97.9 F 51 L 20 124/59 L 91 L 04/03/21 05:56 98.1 F 56 L 20 130/85 92 L 04/03/21 02:54 97.9 F 56 L 18 105/52 L 93 L - Problem List & Annotations (1) Acute respiratory failure due to COVID-19 SNOMED Code(s): 228899062 Code(s): U07.1 - COVID-19; J96.00 - ACUTE RESPIRATORY FAILURE, UNSP W HYPOXIA OR HYPERCAPNIA Status: Acute Priority: High Current Visit: Yes Annotation/Comment:: (2) COVID-19 SNOMED Code(s): 915022605 Code(s): U07.1 - COVID-19 Status: Acute Current Visit: Yes Annotation/Comment:: (3) Hypoxia SNOMED Code(s): 132789962 Code(s): R09.02 - HYPOXEMIA Status: Acute Priority: High Current Visit: Yes (4) Morbid obesity due to excess calories SNOMED Code(s): 870556084 Code(s): E66.01 - MORBID (SEVERE) OBESITY DUE TO EXCESS CALORIES Status: Chronic Priority: Medium Current Visit: Yes (5) Hypokalemia SNOMED Code(s): 78270338 Code(s): E87.6 - HYPOKALEMIA Status: Resolved Priority: High Current Visit: Yes - Problem List Review Problem List Initiated/Reviewed/Updated: Yes - My Orders Last 24 Hours: My Active Orders 04/03/21 08:06 Nurse Communication: Isolation [RC] ASDIRECTED Isolation [COMM] Routine - Assessment Assessment:: 04/03/2021 * Patient reports she is feeling quite a bit better. * Denies any dyspnea at rest or with ambulation. * Reports only episodes of dyspnea or when she has coughing attacks. * Currently on 1 L of oxygen. * We will add Acapella as patient reports she feels like she has mucus in her lungs and cannot cough it up. * She has been utilizing an incentive spirometer. * No labs were obtained today. * We will add dietitian consult due to morbid obesity. * Blood cultures remain negative. * She continues to do quite well. Possible discharge tomorrow pending continued stability/improvement. - Plan Plan:: Acute respiratory failure due to COVID-19 COVID-19 Hypoxia * Continue to encourage proning as much as possible. * Continue Decadron - Day 12/26 * Continue Lovenox 30 mg subcutaneous every 12. * O2 as need with saturation goal of 88-95% * Azithromycin day 2/ * Remdesivir day 2/ * IS/Acapella * RT consultation * Albuterol MDI PRN * Tessalon Perles and Robitussin-DM as needed for cough * Ambulate in room * Recheck CBC, CMP, CRP, Magnesium, D-Dimer tomorrow Morbid obesity due to excess calories * Encourage lifestyle changes * [employer] Weight Operator consultation Hypokalemia, Resolved * Monitor Code status: Full code PCP: Adelaida Lind NP DVT prophylaxis: Lovenox Disposition: Likely discharge tomorrow pending continued improvement <Jesus Perez - Last Filed: 04/03/21 13:57> - Patient Data Vitals - Most Recent: Last Vital Signs Temp 97.9 F 04/03/21 11:49 Pulse 57 L 04/03/21 11:49 Resp 20 04/03/21 11:49 BP 112/76 04/03/21 11:49 Pulse Ox 92 L 04/03/21 11:49 I&O - Last 24 Hours: Intake & Output 04/02/21 04/03/21 04/03/21 22:59 06:59 14:59 Intake Total 600 550 Output Total 355 600 Balance 245 -50 Júnior Results Last 24 Hours: Microbiology 04/01/21 16:17 Aerobic Blood Culture - Preliminary Blood - Venous - Lab Draw NO GROWTH AFTER 1 DAY Anaerobic Blood Culture - Preliminary NO GROWTH AFTER 1 DAY 04/01/21 16:04 Aerobic Blood Culture - Preliminary Blood - Venous NO GROWTH AFTER 1 DAY Anaerobic Blood Culture - Preliminary NO GROWTH AFTER 1 DAY Med Orders - Current: Current Medications Acetaminophen (Acetaminophen 325 Mg Tab) 650 mg PO Q4H PRN PRN Reason: Pain (Mild 1-3)/fever Albuterol (Albuterol 6.7 Gm Inhaler) 0 gm INH Q2H PRN PRN Reason: Dyspnea Last Admin: 04/02/21 20:24 Dose: 2 puff Documented by: Azithromycin (Azithromycin 250 Mg Tab) 500 mg PO 1900 [facility] Stop: 04/04/21 19:01 Last Admin: 04/02/21 18:23 Dose: 500 mg Documented by: Benzonatate (Benzonatate 100 Mg Cap) 100 mg PO TID PRN PRN Reason: Cough Dexamethasone (Dexamethasone 4 Mg Tab) 6 mg PO DAILY [facility] Stop: 04/07/21 17:46 Last Admin: 04/03/21 08:17 Dose: 6 mg Documented by: Enoxaparin Sodium (Enoxaparin 30 Mg/0.3 Ml Syringe) 30 mg SUBCUT Q12H [facility] Last Admin: 04/03/21 08:16 Dose: 30 mg Documented by: Guaifenesin/Phenylephrine HCl (Guaifenesin/Dextromethorphan 100-10 Mg/5 Ml Soln 5 Ml Cup) 5 ml PO Q4H PRN PRN Reason: Cough Remdesivir 100 mg/ Sodium (Chloride) 100 mls @ 100 mls/hr IV Q24H [facility] Stop: 04/05/21 22:59 Last Admin: 04/02/21 22:00 Dose: Not Given Documented by: Ondansetron HCl (Ondansetron 4 Mg Tab.Dis) 4 mg PO Q4H PRN PRN Reason: nausea, able to take PO Sodium Chloride (Sodium Chloride 0.9% 10 Ml Syringe) 10 ml FLUSH ASDIRECTED PRN PRN Reason: Keep Vein Open Last Admin: 04/01/21 16:07 Dose: 10 ml Documented by: Discontinued Medications Azithromycin (Azithromycin 250 Mg Tab) 500 mg PO DAILY [facility] Stop: 04/04/21 18:01 Last Admin: 04/01/21 19:04 Dose: 500 mg Documented by: Enoxaparin Sodium (Enoxaparin 40 Mg/0.4 Ml Syringe) 40 mg SUBCUT Q12H [facility] Last Admin: 04/01/21 19:04 Dose: 40 mg Documented by: Enoxaparin Sodium (Enoxaparin 40 Mg/0.4 Ml Syringe) 40 mg SUBCUT DAILY [facility] Last Admin: 04/02/21 08:45 Dose: 40 mg Documented by: Sodium Chloride (Normal Saline) 1,000 mls @ 250 mls/hr IV ONETIME ONE Stop: 04/01/21 19:28 Last Admin: 04/01/21 16:07 Dose: 250 mls/hr Documented by: Remdesivir 100 mg/ Sodium (Chloride) 250 mls @ 250 mls/hr IV ONETIME [facility] Stop: 04/06/21 18:01 Remdesivir 200 mg/ Sodium (Chloride) 250 mls @ 250 mls/hr IV ONETIME ONE Stop: 04/01/21 20:42 Last Admin: 04/01/21 21:32 Dose: 250 mls/hr Documented by: Oxycodone HCl (Oxycodone 5 Mg Tab) 5 mg PO Q4H PRN PRN Reason: Pain (moderate 4-6) - Patient Data Result Diagrams: 04/02/21 05:06 04/02/21 05:06 Júnior Results Last 24 hrs: Microbiology 04/01/21 16:17 Aerobic Blood Culture - Preliminary Blood - Venous - Lab Draw NO GROWTH AFTER 1 DAY Anaerobic Blood Culture - Preliminary NO GROWTH AFTER 1 DAY 04/01/21 16:04 Aerobic Blood Culture - Preliminary Blood - Venous NO GROWTH AFTER 1 DAY Anaerobic Blood Culture - Preliminary NO GROWTH AFTER 1 DAY Sepsis Event Note - Focused Exam Vital Signs: Vital Signs Temp Pulse Resp BP Pulse Ox Pulse Ox 04/03/21 11:49 97.9 F 57 L 20 112/76 92 L 04/03/21 09:00 93 L 04/03/21 07:48 97.9 F 51 L 20 124/59 L 91 L 04/03/21 05:56 98.1 F 56 L 20 130/85 92 L 04/03/21 02:54 97.9 F 56 L 18 105/52 L 93 L - Problem List & Annotations (1) Acute respiratory failure due to COVID-19 SNOMED Code(s): 347319380 Code(s): U07.1 - COVID-19; J96.00 - ACUTE RESPIRATORY FAILURE, UNSP W HYPOXIA OR HYPERCAPNIA Status: Acute Priority: High Current Visit: Yes Annotation/Comment:: (2) COVID-19 SNOMED Code(s): 525699413 Code(s): U07.1 - COVID-19 Status: Acute Current Visit: Yes Annotation/Comment:: (3) Hypoxia SNOMED Code(s): 180644112 Code(s): R09.02 - HYPOXEMIA Status: Acute Priority: High Current Visit: Yes (4) Morbid obesity due to excess calories SNOMED Code(s): 590697678 Code(s): E66.01 - MORBID (SEVERE) OBESITY DUE TO EXCESS CALORIES Status: Chronic Priority: Medium Current Visit: Yes (5) DVT prophylaxis SNOMED Code(s): 544361419, 456486554 Code(s): Z29.9 - ENCOUNTER FOR PROPHYLACTIC MEASURES, UNSPECIFIED Status: Acute Current Visit: Yes (6) Full code status SNOMED Code(s): 471999578 Code(s): Z78.9 - OTHER SPECIFIED HEALTH STATUS Status: Acute Current Visit: Yes (7) DVT prophylaxis SNOMED Code(s): 321598267, 677185187 Code(s): Z29.9 - ENCOUNTER FOR PROPHYLACTIC MEASURES, UNSPECIFIED Status: Acute Current Visit: Yes Annotation/Comment:: lovenox SQ - My Orders Last 24 Hours: My Active Orders 04/02/21 19:00 Azithromycin [Zithromax] 500 mg PO 1900 04/02/21 21:00 Enoxaparin [Lovenox] 30 mg SUBCUT Q12H 04/02/21 22:00 Remdesivir 100 mg Sodium Chloride 0.9% [Normal Saline] 100 ml IV Q24H 04/03/21 Lunch Regular Diet [DIET] 04/03/21 11:54 RT Chest Physiotherapy [RC] ASDIRECTED - Assessment Assessment:: S: I agree with the above assessment and plan Pt is still coughing up quite a lot. She is definately less dyspneic O: Awake and alert. VS: stable CVS: S1S2 appreciated. RRR lungs: diminished bilaterally. No wheezes pa: obese, soft, non tender. ext: no clubbing, cynanosis or edema Impression: COVID 19 pneumonia Morbid obesity Plan: continue with decadron, remdesivir, albuterol INH, incentive spirometry. Proning position oxygen supplementation antitussive likely DC home tomorrow.
[2021-04-03] MEDS: Azithromycin 250 MG Tab PO SCH (18:06)
[2021-04-03] MEDS: REMDESIVIR 100 MG in Sodium Chloride 0.9% 100 ML IV SCH (21:37)
[2021-04-04] MEDS: Albuterol 6.7 GM Inhaler INH PRN (08:23)
[2021-04-04] MEDS: Dexamethasone 4 MG Tab PO SCH (08:29)
[2021-04-04] MEDS: Enoxaparin 30 MG/0.3 ML Syringe SUBCUT SCH (08:29)
--- NOTE | 2021-04-04 08:56 | PCM.DCSUM1 ---
Discharge Summary - Hospital Course Free Text/Narrative:: Discharge diagnosis: Acute hypoxemic respiratory failure due to COVID 19 COVID 19 pneumonia morbid obesity Discharge medications: see MAR Short history / hospital course: Mrs. Funes is a 56-year-old female who presented to ER with complaints of dyspnea, hypoxemia and cough. She had tested positive for COVID-19 on March 29 and was prescribed dexamethasone, albuterol and Tessalon Perles. She was co mpliant with treatment however her symptoms persisted for several days and seemed to get worse. On 04/01/21 she decided to come to the hospital for inpatient treatment. She was admitted to the medical floor and treated with oxygen supplementation, decadron, rocephin and zithromax. She did incentive spirometry and proning while in the hospital. She gradually improved and was weaned off the oxygen. On 04/04 she felt well enough to go home and was discharged home in a stable condition. She was advised to complete a 10 day course of decadron. She is to use albuterol INH prn and tessalon perles prn for the next several days. Activity is as tolerated Diet: cardiac diet Pt was advised to follow up with her PCP in the next 1-2 wks. Diagnosis: Stroke: No - Discharge Data Discharge Date: 04/04/21 Discharge Disposition: Home, Self-Care 01 Condition: Good - Referral to Home Health Primary Care Physician: Adelaida Lind NP - Discharge Diagnosis/Problem(s) (1) Acute respiratory failure due to COVID-19 SNOMED Code(s): 762180544 ICD Code: U07.1 - COVID-19; J96.00 - ACUTE RESPIRATORY FAILURE, UNSP W HYPOXIA OR HYPERCAPNIA Status: Acute Priority: High Current Visit: Yes Problem Details: (2) COVID-19 SNOMED Code(s): 399540185 ICD Code: U07.1 - COVID-19 Status: Acute Current Visit: Yes Problem Details: (3) Hypoxia SNOMED Code(s): 181398911 ICD Code: R09.02 - HYPOXEMIA Status: Acute Priority: High Current Visit: Yes (4) Morbid obesity due to excess calories SNOMED Code(s): 622459020 ICD Code: E66.01 - MORBID (SEVERE) OBESITY DUE TO EXCESS CALORIES Status: Chronic Priority: Medium Current Visit: Yes (5) DVT prophylaxis SNOMED Code(s): 395517467, 454455306 ICD Code: Z29.9 - ENCOUNTER FOR PROPHYLACTIC MEASURES, UNSPECIFIED Status: Acute Current Visit: Yes (6) Full code status SNOMED Code(s): 570202002 ICD Code: Z78.9 - OTHER SPECIFIED HEALTH STATUS Status: Acute Current Visit: Yes (7) DVT prophylaxis SNOMED Code(s): 516770948, 530274366 ICD Code: Z29.9 - ENCOUNTER FOR PROPHYLACTIC MEASURES, UNSPECIFIED Status: Acute Current Visit: Yes Problem Details: lovenox SQ - Patient Summary/Data Consults: Consultations 04/03/21 11:31 Consult to Respiratory Therapy [Respiratory Care Assess and Treatment] [CONS] Routine 04/03/21 11:44 Consult to Business Development Representative [CONS] Routine - Discharge Plan *PRESCRIPTION DRUG MONITORING PROGRAM REVIEWED*: No *COPY OF PRESCRIPTION DRUG MONITORING REPORT IN PATIENT LAQUITA: No Prescriptions/Med Rec: dexAMETHasone [Dexamethasone] 6 mg PO DAILY 4 Days #4 tablet Albuterol [Ventolin HFA] 1 puff INH Q4H PRN 30 Days #60 puff PRN Reason: Dyspnea Home Medications: Home Meds Albuterol Sulfate [Albuterol Sulfate HFA] 1 puff IH Q6H PRN 04/01/21 [History] Benzonatate 200 mg PO TID PRN 04/01/21 [History] Albuterol [Ventolin HFA] 1 puff INH Q4H PRN 30 Days #60 puff 04/04/21 [Rx] Dextromethorphan/guaiFENesin [Robitussin DM] 5 ml PO Q4H PRN cup 04/04/21 [Rx] dexAMETHasone [Dexamethasone] 6 mg PO DAILY 4 Days #4 tablet 04/04/21 [Rx] Patient Handouts: COVID-19, How to Use a Metered Dose Inhaler, Prevent the Spread of COVID-19 if You Are Sick - [facility] Referrals: Adelaida Lind NP [Primary Care Provider] - 04/11/21 10:30 am (Pleae come 15 minutes prior to your appointment to register) - Discharge Summary/Plan Comment DC Time >30 min.: Yes - Patient Data Vitals - Most Recent: Last Vital Signs Temp 97.9 F 04/04/21 07:35 Pulse 53 L 04/04/21 07:35 Resp 16 04/04/21 07:35 BP 123/85 04/04/21 07:35 Pulse Ox 90 L 04/04/21 08:23 Weight - Most Recent: 289 lb 8 oz I&O - Last 24 hours: Intake & Output 04/03/21 04/04/21 04/04/21 22:59 06:59 14:59 Intake Total 1040 300 Output Total 400 500 Balance 640 -200 Lab Results - Last 24 hrs: Laboratory Results - last 24 hr 04/04/21 04/04/21 04/04/21 Range/Units 06:00 06:00 06:00 WBC 6.19 (3.98-10.04) K/mm3 RBC 4.34 (3.98-5.22) M/mm3 Hgb 13.4 (11.2-15.7) gm/dl Hct 41.2 (34.1-44.9) % MCV 94.9 H (79.4-94.8) fl MCH 30.9 (25.6-32.2) pg MCHC 32.5 (32.2-35.5) g/dl RDW Std Deviation 43.7 (36.4-46.3) fL Plt Count 236 (182-369) K/mm3 MPV 11.0 (9.4-12.3) fl Neut % (Auto) 64.4 (34.0-71.1) % Lymph % (Auto) 27.0 (19.3-51.7) % [place] % (Auto) 7.9 (4.7-12.5) % Eos % (Auto) 0.2 L (0.7-5.8) Baso % (Auto) 0.3 (0.1-1.2) % Neut # (Auto) 3.99 (1.56-6.13) K/mm3 Lymph # (Auto) 1.67 (1.18-3.74) K/mm3 [place] # (Auto) 0.49 H (0.24-0.36) K/mm3 Eos # (Auto) 0.01 L (0.04-0.36) K/mm3 Baso # (Auto) 0.02 (0.01-0.08) K/mm3 Manual Slide Review Abnormal smear D-Dimer, Quantitative 0.23 (0.19-0.50) mg/L Sodium 144 (136-145) mEq/L Potassium 3.5 (3.5-5.1) mEq/L Chloride 106 (98-107) mEq/L Carbon Dioxide 31 (21-32) mEq/L Anion Gap 10.5 (5-15) BUN 19 H (7-18) mg/dL Creatinine 1.0 (0.55-1.02) mg/dL Est Cr Clr Drug Dosing 53.60 mL/min Estimated GFR (MDRD) 57 (>60) mL/min BUN/Creatinine Ratio 19.0 H (14-18) Glucose 122 H (70-99) mg/dL Calcium 8.1 L (8.5-10.1) mg/dL Magnesium 2.3 (1.8-2.4) mg/dL Total Bilirubin 0.6 (0.2-1.0) mg/dL AST 18 (15-37) U/L ALT 49 (14-59) U/L Alkaline Phosphatase 64 (46-116) U/L C-Reactive Protein 3.5 H* (<1.0) mg/dL Total Protein 6.6 (6.4-8.2) g/dl Albumin 2.8 L (3.4-5.0) g/dl Globulin 3.8 gm/dL Albumin/Globulin Ratio 0.7 L (1-2) OLIVIA Results - Last 24 hrs: Microbiology 04/01/21 16:17 Aerobic Blood Culture - Preliminary Blood - Venous - Lab Draw NO GROWTH AFTER 2 DAYS Anaerobic Blood Culture - Preliminary NO GROWTH AFTER 2 DAYS 04/01/21 16:04 Aerobic Blood Culture - Preliminary Blood - Venous NO GROWTH AFTER 2 DAYS Anaerobic Blood Culture - Preliminary NO GROWTH AFTER 2 DAYS Med Orders - Current: Current Medications Acetaminophen (Acetaminophen 325 Mg Tab) 650 mg PO Q4H PRN PRN Reason: Pain (Mild 1-3)/fever Albuterol (Albuterol 6.7 Gm Inhaler) 0 gm INH Q2H PRN PRN Reason: Dyspnea Last Admin: 04/04/21 08:23 Dose: 2 puff Documented by: Azithromycin (Azithromycin 250 Mg Tab) 500 mg PO 1900 ETTA Stop: 04/04/21 19:01 Last Admin: 04/03/21 18:06 Dose: 500 mg Documented by: Benzonatate (Benzonatate 100 Mg Cap) 100 mg PO TID PRN PRN Reason: Cough Last Admin: 04/03/21 21:36 Dose: 100 mg Documented by: Dexamethasone (Dexamethasone 4 Mg Tab) 6 mg PO DAILY [facility] Stop: 04/07/21 17:46 Last Admin: 04/04/21 08:29 Dose: 6 mg Documented by: Enoxaparin Sodium (Enoxaparin 30 Mg/0.3 Ml Syringe) 30 mg SUBCUT Q12H [facility] Last Admin: 04/04/21 08:29 Dose: 30 mg Documented by: Guaifenesin/Phenylephrine HCl (Guaifenesin/Dextromethorphan 100-10 Mg/5 Ml Soln 5 Ml Cup) 5 ml PO Q4H PRN PRN Reason: Cough Last Admin: 04/03/21 21:36 Dose: 5 ml Documented by: Remdesivir 100 mg/ Sodium (Chloride) 100 mls @ 100 mls/hr IV Q24H [facility] Stop: 04/05/21 22:59 Last Admin: 04/03/21 21:37 Dose: 100 mls/hr Documented by: Ondansetron HCl (Ondansetron 4 Mg Tab.Dis) 4 mg PO Q4H PRN PRN Reason: nausea, able to take PO Sodium Chloride (Sodium Chloride 0.9% 10 Ml Syringe) 10 ml FLUSH ASDIRECTED PRN PRN Reason: Keep Vein Open Last Admin: 04/01/21 16:07 Dose: 10 ml Documented by: Discontinued Medications Azithromycin (Azithromycin 250 Mg Tab) 500 mg PO DAILY [facility] Stop: 04/04/21 18:01 Last Admin: 04/01/21 19:04 Dose: 500 mg Documented by: Enoxaparin Sodium (Enoxaparin 40 Mg/0.4 Ml Syringe) 40 mg SUBCUT Q12H [facility] Last Admin: 04/01/21 19:04 Dose: 40 mg Documented by: Enoxaparin Sodium (Enoxaparin 40 Mg/0.4 Ml Syringe) 40 mg SUBCUT DAILY [facility] Last Admin: 04/02/21 08:45 Dose: 40 mg Documented by: Sodium Chloride (Normal Saline) 1,000 mls @ 250 mls/hr IV ONETIME ONE Stop: 04/01/21 19:28 Last Admin: 04/01/21 16:07 Dose: 250 mls/hr Documented by: Remdesivir 100 mg/ Sodium (Chloride) 250 mls @ 250 mls/hr IV ONETIME ETTA Stop: 04/06/21 18:01 Remdesivir 200 mg/ Sodium (Chloride) 250 mls @ 250 mls/hr IV ONETIME ONE Stop: 04/01/21 20:42 Last Admin: 04/01/21 21:32 Dose: 250 mls/hr Documented by: Oxycodone HCl (Oxycodone 5 Mg Tab) 5 mg PO Q4H PRN PRN Reason: Pain (moderate 4-6)
== END 2021-04-04 12:43 | disposition home or self-care (01) | DRG 177 ==
LOC: JD.ED 14:59 → JD.MS 17:13
PROVIDERS: ADMIT Hospitalist; ATTEND Hospitalist
PROC: XW033E5 Introduction of Remdesivir Anti-infective into Peripheral Vein, Percutaneous Approach, New Technology Group 5 (ICD-10-PCS; principal; 2021-04-01)
PROC: 8E0ZXY6 Isolation (ICD-10-PCS; 2021-04-03)
DX: U07.1 COVID-19 (principal); J96.01 Acute respiratory failure with hypoxia; J12.82 Pneumonia due to coronavirus disease 2019; Z68.42 Body mass index [BMI] 45.0-49.9, adult; E66.01 Morbid (severe) obesity due to excess calories; Z88.6 Allergy status to analgesic agent; E87.6 Hypokalemia
CPT/HCPCS: 36415; 36600; 71045; 71045-26; 80048; 80053; 80076; 82728; 82803; 83605; 83615; 83735; 83880; 84484; 85007; 85025; 85027; 85379; 85610; 85730; 86140; 87040; 93005; 93010; 94640; 94667; 94760; 94761; 99221; 99233; 99239; 99284; 99285-25; A9270-GY; J1650; J7030; J7050; J8540

== ENCOUNTER 2025-01-07 11:47 | Emergency (ER) | payer BC, OTHER ==
[2025-01-07] MEDS ORDERED: Sodium Chloride 0.9% 10 ML Syringe FLUSH PRN (12:30)
[2025-01-07 12:56] LABS: BASOPHILS ABSOLUTE AUTO 0.1 K/mm3 (0.0-0.2); BASOPHILS PERCENT AUTO 0.4 % (0.0-1.0); EOSINOPHILS ABSOLUTE AUTO 0.3 K/mm3 (0.0-0.4); EOSINOPHILS PERCENT AUTO 2.6 % (0.0-6.0); HEMATOCRIT 37.4 % (37.0-47.0); HEMOGLOBIN 12.4 gm/dl (12.0-16.0); IMMATURE GRAN ABSOLUTE AUTO 0.05 K/mm3 (0.00-0.05); IMMATURE GRAN PERCENT AUTO 0.4 % (0.0-0.4); LYMPHOCYTES ABSOLUTE AUTO 2.4 K/mm3 (1.0-4.8); LYMPHOCYTES PERCENT AUTO 21.3 % (24.0-44.0); MEAN CORPUSCULAR HEMOGLOBIN 30.2 pg (28.0-32.0); MEAN CORPUSCULAR HGB CONC 33.2 g/dl (32.0-36.0); MEAN CORPUSCULAR VOLUME 91.2 fl (83.0-99.0); MEAN PLATELET VOLUME 9.4 fl (9.4-12.3); MONOCYTES ABSOLUTE AUTO 0.9 K/mm3 (0.0-0.8); MONOCYTES PERCENT AUTO 8.2 % (0.0-8.0); NEUTROPHILS ABSOLUTE AUTO 7.7 K/mm3 (1.8-7.7); NEUTROPHILS PERCENT AUTO 67.1 % (41.0-71.0); PLATELET COUNT,PLT 353 K/mm3 (150-400); WHITE BLOOD CELL COUNT,WBC 11.41 K/mm3 (3.9-11.3)
[2025-01-07] MEDS: Sodium Chloride 0.9% 10 ML Syringe FLUSH ONE (13:03)
[2025-01-07] MEDS: Iopamidol 612 MG/ML 100 ML Bottle IVPUSH ONE (13:03)
[2025-01-07 13:18] LABS: ALBUMIN 3.1 g/dl (3.4-5.0); C-REACTIVE PROTEIN 6.03 mg/dL (<0.30)
[2025-01-07 13:59] LABS: A/G RATIO 0.6 (1-2); ANION GAP 12.7 (5-15); BILIRUBIN TOTAL 0.6 mg/dL (0.2-1.0); BUN/CREATININE RATIO 9.1 (14-18); CALCIUM 9.2 mg/dL (8.5-10.1); CREATININE 1.1 mg/dL (0.55-1.02); EST CRCL DRUG DOSING (CG) 44.99 mL/min; POTASSIUM,K 3.7 mEq/L (3.5-5.1)
== END 2025-01-07 16:02 | disposition home or self-care (01) ==
LOC: JD.ED 11:47
DX: R59.0 Localized enlarged lymph nodes (principal); R10.30 Lower abdominal pain, unspecified; Z79.899 Other long term (current) drug therapy; J45.909 Unspecified asthma, uncomplicated; Z86.16 Personal history of COVID-19; Z90.49 Acquired absence of other specified parts of digestive tract; Z87.891 Personal history of nicotine dependence; Z88.8 Allergy status to other drugs, medicaments and biological substances; Z79.51 Long term (current) use of inhaled steroids
CPT/HCPCS: 36415; 74177; 80053; 83735; 85025; 86140; 99284; Q9967

== ENCOUNTER 2025-04-16 13:06 | Emergency (ER) | payer BC ==
[2025-04-16] MEDS: Sodium Chloride 0.9% 1,000 ML IV STA (14:29)
[2025-04-16] MEDS: Metoclopramide 10 MG/2 ML SDV IVPUSH ONE (14:29)
[2025-04-16] MEDS: HYDROmorphone 0.5 MG/0.5 ML Syringe IVPUSH ONE (14:30)
[2025-04-16] MEDS: Sodium Chloride 0.9% 10 ML Syringe FLUSH ONE (14:30)
[2025-04-16] MEDS: Sodium Chloride 0.9% 10 ML Syringe FLUSH PRN (14:30)
[2025-04-16 14:45] LABS: BASOPHILS PERCENT AUTO 0.2 % (0.0-1.0); EOSINOPHILS PERCENT AUTO 0.2 % (0.0-6.0); HEMATOCRIT 30.7 % (37.0-47.0); IMMATURE GRAN ABSOLUTE AUTO 0.09 K/mm3 (0.00-0.05); IMMATURE GRAN PERCENT AUTO 0.6 % (0.0-0.4); LYMPHOCYTES ABSOLUTE AUTO 1.1 K/mm3 (1.0-4.8); LYMPHOCYTES PERCENT AUTO 6.9 % (24.0-44.0); MEAN CORPUSCULAR HEMOGLOBIN 25.9 pg (28.0-32.0); MEAN CORPUSCULAR HGB CONC 29.3 g/dl (32.0-36.0); MEAN CORPUSCULAR VOLUME 88.5 fl (83.0-99.0); MEAN PLATELET VOLUME 8.9 fl (9.4-12.3); MONOCYTES ABSOLUTE AUTO 0.9 K/mm3 (0.0-0.8); MONOCYTES PERCENT AUTO 5.7 % (0.0-8.0); NEUTROPHILS ABSOLUTE AUTO 13.4 K/mm3 (1.8-7.7); NEUTROPHILS PERCENT AUTO 86.4 % (41.0-71.0); RED BLOOD CELL COUNT 3.47 M/mm3 (4.10-5.30); WHITE BLOOD CELL COUNT,WBC 15.53 K/mm3 (3.9-11.3)
[2025-04-16 14:47] LABS: PLATELET COUNT,PLT 466 K/mm3 (150-400)
[2025-04-16 15:09] LABS: A/G RATIO 0.4 (1-2); ANION GAP 11.8 (5-15); BILIRUBIN TOTAL 0.6 mg/dL (0.2-1.0); CALCIUM 9.2 mg/dL (8.5-10.1); CREATININE 0.9 mg/dL (0.55-1.02); EST CRCL DRUG DOSING (CG) 61.45 mL/min; POTASSIUM,K 3.8 mEq/L (3.5-5.1); PROTEIN TOTAL,TP 7.6 g/dl (6.4-8.2)
[2025-04-16] MEDS: Iopamidol 612 MG/ML 100 ML Bottle IVPUSH ONE (15:27)
[2025-04-16] MEDS: Piperacillin/Tazobactam 4.5 GM in Sodium Chloride 0.9% 100 ML IV ONE (16:49)
[2025-04-16] MEDS: Sodium Chloride 0.9% 1,000 ML IV SCH (16:49)
== END 2025-04-16 18:45 ==
LOC: JD.ED 13:06
DX: K65.1 Peritoneal abscess (principal); J45.909 Unspecified asthma, uncomplicated; E66.9 Obesity, unspecified; Z86.16 Personal history of COVID-19; Z90.49 Acquired absence of other specified parts of digestive tract; Z90.710 Acquired absence of both cervix and uterus; Z79.899 Other long term (current) drug therapy; Z88.5 Allergy status to narcotic agent
CPT/HCPCS: 36415; 74177; 80053; 83605; 83690; 85025; 87040; 96361; 96365; 96375; 99285; J2543; J2765; J7030; Q9967